=== PATIENT | female | born 1930 | race Caucasian/White ===

== ENCOUNTER 2017-12-15 18:55 | Inpatient (IN) ==
[2017-12-15] MEDS ORDERED: *HR* HYDROcodone/Acet 5/325 mg TABLET PO PRN (20:26)
[2017-12-15] MEDS ORDERED: NON-FORMULARY MEDICATION 1 EACH EACH (Alendronate Sodium [Fosamax] 70 MG) PO SCH (20:30)
[2017-12-15] MEDS: Latanoprost 2.5 ML BOTTLE BOTH EYES SCH (21:31)
[2017-12-15] MEDS ORDERED: Vancomycin 500 MG in 0.9 % Sodium Chloride Mini Bag 100 ML IVPB ONE (22:00)
[2017-12-16] MEDS: Ondansetron ODT 4 MG TAB.RAPDIS SL PRN ×2 (03:14→17:08)
[2017-12-16 05:52] LABS: Basophils % 0.1 %; Eosinophils % 0.6 %; Hematocrit 27.7 % (35.3-44.9); Hemoglobin 8.8 g/dL (11.5-15.4); Immature Granulocytes % 0.7 % (0-4); Lymphocytes # 0.4 K/mcL (0.6-4.6); Lymphocytes % 5.1 %; Mean Corpuscular HGB Conc 31.8 g/dL (31.6-35.5); Mean Corpuscular Volume 91.4 fL (83.0-100.0); Mean Platelet Volume 10.8 fL (9.4-12.4); Monocytes # 0.6 K/mcL (0.0-1.3); Monocytes % 8.8 %; Neutrophils # 5.9 K/mcL (1.6-8.9); Platelet Count 205 K/mcL (140-400); Red Blood Count 3.03 M/mcL (3.82-4.97); Red Cell Distribution Width 14.5 % (11.5-14.5); Segmented Neutrophils % 84.7 %
[2017-12-16 06:08] LABS: Calcium 8.6 mg/dL (8.6-10.3)
[2017-12-16] MEDS: Cholecalciferol (D-3) 1,000 UNIT TABLET PO SCH (08:20)
[2017-12-16] MEDS: Lactobacillus 1 EACH CAP.SPRINK PO SCH (08:20)
[2017-12-16] MEDS: amLODIPine 5 MG TABLET PO SCH (08:20)
[2017-12-16] MEDS: Anastrozole 1 MG TABLET PO SCH (08:21)
--- NOTE | 2017-12-16 09:34 | Internal Med History&Physical ---
Date of Encounter: 12/16/17 Time of Encounter: 09:32 Assessment and Plan (1) HTN (hypertension) Current visit: No Status: Chronic Blood pressure is stable continue present medications will follow Qualifiers: Hypertension type: essential hypertension Qualified Code(s): I10 - Essential (primary) hypertension (2) Abscess of right upper extremity Current visit: No Status: Acute s/p incision drainage , wound seems to be stable and healing limited drain noted ON VAN and Levaquin adjsut dose Van based on levels has increase creatinine (3) Acute kidney injury Current visit: No Status: Acute Baseline is not known at the present time Creatinine is 2.2 will follow labs adjust meds accordingly (4) Anemia Current visit: Yes Status: Chronic Iron levels ordered empirically start on Ferrous Sulphate Qualifiers: Anemia type: unspecified type Qualified Code(s): D64.9 - Anemia, unspecified Internal Medicine - H&P: HPI Admitted From: Hospital to Hospital Transfer History of present illness: Ms. Shah is a 87 year old female who had incision drainage of left wrist for septic arthritis and was sent for further care and rehab . She had hx of CRI , HTN some anxiety . Complains of some pain on surgical site and feels that oxycontin helps better and affects stays longer No other complains . No chest pain SOB , cough fever or chills No dizziness no weakness in arms or legs No nausea vomiting or diarrhea no ruinary complains Past Med Surg Social Fam HX - Past Medical History Medical history: arthritis, hyperlipidemia, hypertension Psychiatric history: no psych history - Past Surgical History Additional surgical history: Bilat knee replacement, appendectomy, R partial masectomy - Social History Smoking Status: Never smoker Smokeless Tobacco Status: No Alcohol use: none Drug use: none - Family History Mother Family Member Ethnicity: Non- Living Status: Still Living Hx Family Cardiac Disorders: Yes (angina) Hx Family Cancer: Yes (breast) Father Adopted: No Living Status: Hx Family Cardiac Disorders: Yes Hx Family Cancer: Yes Internal Medicine - H&P: Meds Anastrozole [Arimidex] 1 mg PO DAILY 07/02/15 [History] Sertraline [Zoloft] 150 mg PO DAILY 07/02/15 [History] Simvastatin [Zocor] 20 mg PO HS 07/02/15 [History] amLODIPine [Norvasc] 5 mg PO DAILY 07/02/15 [History] Buspirone HCl [Buspar] 7.5 mg PO BID 11/12/17 [History] Calcium Carbonate/Vitamin D3 [Calcium 600 + Vit D Tablet] 1 each PO BID 11/12/17 [History] Cholecalciferol (Vitamin D3) [Vitamin D3] 1,000 unit PO DAILY 11/12/17 [History] Donepezil HCl [Aricept] 5 mg PO HS 11/12/17 [History] Alendronate Sodium [Fosamax] 70 mg PO QWEEK 11/20/17 [History] Latanoprost [Xalatan] 1 drop BOTH EYES HS 11/20/17 [History] Docusate [Colace] 100 mg PO DAILY capsule 12/15/17 [Rx] HYDROcodone/Acet 5/325 mg [[place] 5-325 mg] 1 tab PO Q6H PRN 3 Days #12 tab 12/15/17 [Rx] Lactobacillus [Culturelle] 2 each PO DAILY cap.sprink 12/15/17 [Rx] Levofloxacin [Levaquin] 500 mg PO ONCE #1 tablet 12/15/17 [Rx] Ondansetron ODT [Zofran ODT] 4 mg SL Q6HR PRN #10 tab.rapdis 12/15/17 [Rx] Vancomycin [Vancocin] 500 each IV QAM 3 Days #3 vial 12/15/17 [Rx] Allergy/AdvReac Type Severity Reaction Status Date / Time No Known Allergies Allergy Verified 11/12/17 12:09 All Systems PM: A 10-system review of systems was performed and is negative for pertinent findings except as documented above in the HPI. - Constitutional Constitutional: lethargy, no anorexia, no chills, no excessive sweating, no fatigue, no falls, no weight gain, no weight loss - EENT Eyes: no blurry vision, no diplopia, no discharge, no loss of vision, no seeing flashes, no spots in vision - Cardiovascular Cardiovascular ROS IM: no chest pain, no claudication, no diaphoresis, no dyspnea, no dyspnea on exertion, no lightheadedness, no orthopnea, no palpitations, no paroxysmal nocturnal dyspnea, no syncope - Respiratory Respiratory: no cough, no dyspnea, no hemoptysis, no pain on inspiration, no chest congestion, no excessive phlegm production, no change in phlegm color, no pain with cough - Gastrointestinal Gastrointestinal: no as per HPI, no belching, no bloating, no change in bowel habits, no change in stool character, no heartburn, no hematemesis, no hematochezia - Genitourinary Genitourinary: urinary frequency, urinary hesitancy, no hematuria, no pelvic pain - Musculoskeletal Musculoskeletal ROS IM: arthralgias, muscle weakness, myalgias, neck pain, no back pain, no muscle cramps, no numbness - Neurological Neurological ROS: dizziness, weakness, no confusion, no convulsions - Constitutional Vitals: Temp Pulse Resp BP Pulse Ox 98.0 F 86 16 117/74 93 12/16/17 07:16 12/16/17 07:16 12/16/17 07:16 12/16/17 07:16 12/16/17 07:16 General appearance: Present: A&O X 3, pleasant. Absent: no acute distress - Head Head exam: Present: atraumatic - Eye Eye exam: Present: EOMI, PERRL. Absent: scleral icterus Pupils: Present: PERRL - Neck Neck exam general surgery: Absent: tenderness, nuchal rigidity - Respiratory Respiratory exam: Present: CTAB. Absent: decreased breath sounds, respiratory distress, rhonchi, stridor, wheezes, tachypnea - Cardiovascular Cardiovascular exam: Present: RRR, +S1, systolic murmur. Absent: irregular rhythm, JVD Additional comments: at [place] no Radiation - GI/Abdominal GI/Abdominal exam: Present: normal bowel sounds, pulsatile mass, soft. Absent: distended, guarding, rebound, rigid - Extremities Exam Extremities exam: Present: pedal edema Additional comments: ++ pitting both feet - Incison Incision: Present: clean and dry, open. Absent: inflamed, erythema, serous Comments: left wrist open wound with some stitches in place , no apprent discharge noted no surrounding erythema dressing seems clean. - Neurological Exam Neurological exam: Present: CN II-XII intact, oriented X3, no focal deficits, strengths equal and symetr throughout Additional comments: some weakness left wrist since its infected and Internal Med - H&P Results - Labs CBC & Chem 7: 12/16/17 05:00 12/16/17 05:00 Labs: Short CBC 12/16/17 Range/Units 05:00 WBC 7.0 (4.3-11.1) K/mcL Hgb 8.8 L (11.5-15.4) g/dL Hct 27.7 L (35.3-44.9) % Plt Count 205 (140-400) K/mcL Neutrophils # 5.9 (1.6-8.9) K/mcL BMP 12/16/17 05:00 Sodium 133 L Potassium 4.0 Chloride 99 Carbon Dioxide 28 BUN 19 Creatinine 2.29 H Glucose 109 H Calcium 8.6
[2017-12-16] MEDS: *HR* OxyCODONE/APAP 5/325 TABLET PO PRN (18:00)
[2017-12-16] MEDS: Latanoprost 2.5 ML BOTTLE BOTH EYES SCH (21:09)
[2017-12-16] MEDS ORDERED: Vancomycin 500 MG in 0.9 % Sodium Chloride Mini Bag 100 ML IVPB ONE (22:00)
[2017-12-17] MEDS: traMADol 50 MG TABLET PO PRN ×2 (00:30→20:30)
--- NOTE | 2017-12-17 08:22 | Internal Med Progress Note ---
Date of Encounter: 12/17/17 Time of Encounter: 08:20 - Assessment and plan (1) HTN (hypertension) Current Visit: No Status: Chronic Assessment and plan: stable on meds no new change will continue to follow Qualifiers: Hypertension type: essential hypertension Qualified Code(s): I10 - Essential (primary) hypertension (2) Abscess of right upper extremity Current Visit: No Status: Acute Assessment and plan: She has completed her levofloxacin and is on Vancomycin dose is being adjusted by Pharmacy Pt is afebrile All cultures have been negative so far Her antibiotics to finish 12/18/2017 (3) Acute kidney injury Current Visit: No Status: Acute Assessment and plan: Per records this seems to be an acute kidney injury will need to adjust disease and follow. If needed ultrasound og the kidneys if not already done (4) Anemia Current Visit: Yes Status: Chronic Assessment and plan: On iron will follow TSH is pending Qualifiers: Anemia type: unspecified type Qualified Code(s): D64.9 - Anemia, unspecified - Subjective Interval history: Doing very well with no acute issues today except that she couldn't sleep last night no apparent reason her pain is well controlled with change in her meds no fever or chills nausea or vomiting eating and drinking fluids making urine as well - Constitutional Vitals: Temp Pulse Resp BP Pulse Ox 97.8 F 70 16 110/67 95 12/17/17 00:19 12/17/17 00:19 12/17/17 00:19 12/17/17 00:19 12/17/17 00:19 General appearance: Present: A&O X 3, pleasant, answers questions appropriately. Absent: no acute distress - Head Head exam: Present: atraumatic - Eye Eye exam: Present: PERRL. Absent: scleral icterus Pupils: Present: PERRL - Neck Neck exam general surgery: Present: supple. Absent: tenderness, nuchal rigidity - Respiratory Respiratory exam: Present: CTAB. Absent: decreased breath sounds, prolonged expiratory phase, rales, respiratory distress, rhonchi, stridor, wheezes, tachypnea - Cardiovascular Cardiovascular exam: Present: RRR, +S1, +S2. Absent: irregular rhythm, JVD Additional comments: soft click and murmur at apex no radiation - GI/Abdominal GI/Abdominal exam: Present: normal bowel sounds, soft. Absent: distended, guarding, rigid - Extremities Exam Extremities exam: Present: pedal edema. Absent: tenderness, warm Additional comments: ++ pitting both sides - Incison Incision: Present: clean and dry, intact, open Comments: some sutures are open and clean with no or minimal drainage - Neurological Exam Neurological exam: Present: CN II-XII intact, oriented X3, no focal deficits, strengths equal and symetr throughout. Absent: facial droop, speech deficit Internal Medicine: Result - Labs CBC & Chem 7: 12/16/17 05:00 12/16/17 05:00 Consult Discharge Plan - Plan Referrals: Conchis Escobar, CLIENT ARCHITECT [Primary Care Provider] -
[2017-12-17] MEDS ORDERED: levoFLOXacin 500 MG TABLET PO ONE (09:00)
[2017-12-17] MEDS: *HR* OxyCODONE/APAP 5/325 TABLET PO PRN (09:05)
[2017-12-17] MEDS: amLODIPine 5 MG TABLET PO SCH (09:06)
[2017-12-17] MEDS: Anastrozole 1 MG TABLET PO SCH (09:06)
[2017-12-17] MEDS: Lactobacillus 1 EACH CAP.SPRINK PO SCH (09:06)
[2017-12-17] MEDS: Cholecalciferol (D-3) 1,000 UNIT TABLET PO SCH (09:07)
[2017-12-17] MEDS: Ondansetron ODT 4 MG TAB.RAPDIS SL PRN ×2 (12:19→17:37)
[2017-12-17 14:09] LABS: BUN/Creatinine Ratio 9 (6-26); Blood Urea Nitrogen 22 mg/dL (8-23); eGFR For Non-African Americans 18 (> 60)
[2017-12-17] MEDS: Latanoprost 2.5 ML BOTTLE BOTH EYES SCH (20:38)
[2017-12-18 05:53] LABS: Basophils % 0.2 %; Eosinophils # 0.1 K/mcL (0.0-0.6); Eosinophils % 0.8 %; Hematocrit 27.7 % (35.3-44.9); Hemoglobin 8.8 g/dL (11.5-15.4); Immature Granulocytes % 0.6 % (0-4); Lymphocytes # 0.5 K/mcL (0.6-4.6); Lymphocytes % 5.5 %; Mean Corpuscular HGB Conc 31.8 g/dL (31.6-35.5); Mean Corpuscular Hemoglobin 29.2 pg (28.0-33.3); Mean Platelet Volume 9.9 fL (9.4-12.4); Monocytes # 0.6 K/mcL (0.0-1.3); Monocytes % 7.6 %; Neutrophils # 7.2 K/mcL (1.6-8.9); Platelet Count 203 K/mcL (140-400); Red Blood Count 3.01 M/mcL (3.82-4.97); Red Cell Distribution Width 14.6 % (11.5-14.5); Segmented Neutrophils % 85.3 %
[2017-12-18 06:06] LABS: Calcium 8.8 mg/dL (8.6-10.3); Potassium 4.2 mEq/L (3.5-5.1)
[2017-12-18] MEDS: amLODIPine 5 MG TABLET PO SCH (08:11)
[2017-12-18] MEDS: Lactobacillus 1 EACH CAP.SPRINK PO SCH (08:12)
[2017-12-18] MEDS: Anastrozole 1 MG TABLET PO SCH (08:12)
[2017-12-18] MEDS: Cholecalciferol (D-3) 1,000 UNIT TABLET PO SCH (08:12)
[2017-12-18] MEDS ORDERED: Aminoglycoside Consult 1 EACH MC ONE (08:21)
[2017-12-18] MEDS: *HR* OxyCODONE/APAP 5/325 TABLET PO PRN ×2 (08:22→20:12)
--- NOTE | 2017-12-18 11:33 | Internal Med Progress Note ---
Addendum entered and electronically signed by Yaritza Dennis 12/19/17 16:35: I examined this patient and my medical decision-making was reviewed with the QUILL REAMER. I agree with the documented findings, disposition and treatment plan as described except to the extent set forth below. abscess LUE improving finishing vanco course continue dressing changes treat perineum irritation rajat yeast Acute stage 3 kidney injury Previous records indicate baseline cre = 0.5 will continue to follow labs will obtain renal and bladder ultrasound making urine nausea vomiting lack of eating nutritional risk meal supplements will change medications that could aggravate - reduce zoloft from 150 to 75 mg may need to reduce iron hold donezapil for now add pepcid anemia stable hx iron def no active bleeding oxygenation has 2 L oxygen nc and reduced excursion has hx copd was not on home oxygen prior but has had exacerbations in past and likely atac tasis will add IS and tonibs had Left lower lobe opacity prior to admit here will repeat cxr 2 view continues to be weak reduced mobility continue therapy she and care for her 105 yr old mother at home in past Original Note: Date of Encounter: 12/18/17 Time of Encounter: 11:31 - Assessment and plan (1) HTN (hypertension) Current Visit: No Status: Chronic Qualifiers: Hypertension type: essential hypertension Qualified Code(s): I10 - Essential (primary) hypertension (2) Abscess of left upper extremity Current Visit: Yes Status: Acute Assessment and plan: Improving. Follow up with infectious disease as scheduled. Last day vancomycin today. Levaquin completed. (3) Acute kidney injury Current Visit: Yes Status: Acute Assessment and plan: Creatinine stable at 2.52. Will continue to try and labs. Last dose of vancomycin today. Follow up with nephrology as scheduled. (4) Anemia Current Visit: Yes Status: Chronic Assessment and plan: Stable. Hemoglobin 8.8. Qualifiers: Anemia type: unspecified type Qualified Code(s): D64.9 - Anemia, unspecified - Time Spent With Patient less than 15 minutes - Subjective Interval history: Patient sitting in chair. Continues to wear oxygen per nasal cannula. Encouraged incentive spirometer. Discussed ordering nebulizer treatments. January oxygen at home. Denies shortness of breath, chest pain. Creatinine continues to be lightly elevated but stable. To follow up with nephrology. Last dose of vancomycin to be completed today. Patient complains of constipation. Will order laxatives. - Constitutional Vitals: Temp Pulse Resp BP Pulse Ox 98.5 F 85 17 107/64 96 12/18/17 07:23 12/18/17 07:23 12/18/17 07:23 12/18/17 07:23 12/18/17 07:23 General appearance: Present: A&O X 3, pleasant, answers questions appropriately. Absent: no acute distress - Head Head exam: Present: atraumatic, normocephalic - Eye Eye exam: Present: PERRL, conjuntiva pink, sclera anicteric Pupils: Present: PERRL - Neck Neck exam general surgery: Present: supple, trachea midline. Absent: lymphadenopathy - Respiratory Respiratory exam: Absent: accessory muscle use, rales, rhonchi, wheezes Additional comments: Expiratory crackles bilateral upper lobes. - Cardiovascular Cardiovascular exam: Present: RRR, +S1, +S2. Absent: diastolic murmur, gallop, rubs, systolic murmur - GI/Abdominal GI/Abdominal exam: Present: normal bowel sounds, soft, no peritoneal signs. Absent: distended, tenderness - Extremities Exam Extremities exam: Present: warm, radial pulses palpable and symmetrical. Absent: calf tenderness, cyanotic, pedal edema - Incison Comments: Left wrist wound. Dressing dry and intact. - Neurological Exam Neurological exam: Present: CN II-XII intact, oriented X3, no focal deficits. Absent: pronater drift, facial droop, speech deficit - Skin Skin exam: Present: dry, intact Internal Medicine: Result - Labs CBC & Chem 7: 12/18/17 05:45 12/18/17 05:45 Labs: Short CBC 12/18/17 Range/Units 05:45 WBC 8.5 (4.3-11.1) K/mcL Hgb 8.8 L (11.5-15.4) g/dL Hct 27.7 L (35.3-44.9) % Plt Count 203 (140-400) K/mcL Neutrophils # 7.2 (1.6-8.9) K/mcL BMP 12/17/17 12/18/17 13:50 05:45 Sodium 133 L Potassium 4.2 Chloride 98 Carbon Dioxide 30 H BUN 22 21 Creatinine 2.51 H 2.52 H Glucose 101 Calcium 8.8 Consult Discharge Plan - Plan Referrals: Escobar,Conchis J, JOHNNY [Primary Care Provider] -
[2017-12-18] MEDS: traMADol 50 MG TABLET PO PRN (13:23)
[2017-12-18 13:28] LABS: Iron < 10 mcg/dL (50-170); Transferrin 132 mg/dL (203-362)
[2017-12-18] MEDS: Ipratropium/Albuterol Neb 3 ML IH SCH ×2 (16:53→20:11)
[2017-12-18] MEDS: Famotidine 20 MG TABLET PO SCH (20:10)
[2017-12-18] MEDS: Latanoprost 2.5 ML BOTTLE BOTH EYES SCH (20:15)
[2017-12-19] MEDS: Ipratropium/Albuterol Neb 3 ML IH SCH ×4 (05:00→20:39)
[2017-12-19] MEDS: Lactobacillus 1 EACH CAP.SPRINK PO SCH (09:55)
[2017-12-19] MEDS: Cholecalciferol (D-3) 1,000 UNIT TABLET PO SCH (09:55)
[2017-12-19] MEDS: Anastrozole 1 MG TABLET PO SCH (09:56)
[2017-12-19] MEDS: amLODIPine 5 MG TABLET PO SCH (09:56)
[2017-12-19] MEDS: Famotidine 20 MG TABLET PO SCH ×2 (09:56→20:34)
[2017-12-19] MEDS: traMADol 50 MG TABLET PO PRN (09:57)
--- NOTE | 2017-12-19 11:14 | Internal Med Progress Note ---
Addendum entered and electronically signed by Yaritza Dennis 12/19/17 16:43: I have personally performed a face to face evaluation on this patient. I have reviewed and agree with the care plan. Her abscess LUE improving still discontinued vanco course completed levaquin continue dressing changes Acute stage 3 kidney injury Previous records indicate baseline cre = 0.5 not much change in last days has been over 2 will continue to follow labs will obtain renal and bladder ultrasound making urine nausea vomiting lack of eating nutritional risk meal supplements did change medications that could aggravate - reduce zoloft from 150 to 75 mg may need to reduce iron currently bid hold donezapil for now add pepcid anemia stable hx iron def no active bleeding oxygenation has 2 L oxygen nc and reduced excursion has hx copd was not on home oxygen prior but has had exacerbations in past added IS and duonebs had Left lower lobe opacity prior to admit here will repeat cxr 2 view continues to be weak reduced mobility continue therapy she and care for her 105 yr old mother at home in past Original Note: Date of Encounter: 12/19/17 Time of Encounter: 11:12 - Assessment and plan (1) Abscess of left upper extremity Current Visit: Yes Status: Acute Assessment and plan: No acute issues. He has dressing to left wrist which remains dry and intact with continued slight swelling of the left hand. CV checks remained within normal limits. Patient with complaints of slight pain during mobilization of left breast. Patient's vancomycin has finished due to her elevated creatinine. We will contact infectious disease physician to provide patient's status and further recommendations. Patient remains afebrile (2) HTN (hypertension) Current Visit: No Status: Chronic Assessment and plan: Vital signs remained stable. We will continue with current medications Qualifiers: Hypertension type: essential hypertension Qualified Code(s): I10 - Essential (primary) hypertension (3) Acute kidney injury Current Visit: Yes Status: Acute Assessment and plan: o acute issues at this time. Patient's creatinine elevated at 2.52. Per medical records patient's baseline creatinine has been 0.5. Vancomycin has been discontinued. We will continue to monitor patient's renal status with serial labs. We will discuss with Dr. Dennis with possible consideration of nephrology consult. - Time Spent With Patient less than 15 minutes - Subjective Interval history: Patient appears relaxed currently denies any discomforts or shortness of breath. Patient does state that when she moves her left wrist and she does have increased pain. Left wrist with dressing in place and noted slight swelling to the left hand. Patient has finished her IV antibiotics. - Constitutional Vitals: Temp Pulse Resp BP Pulse Ox 98.1 F 90 16 100/60 95 12/19/17 07:23 12/19/17 07:23 12/19/17 07:23 12/19/17 07:49 12/19/17 07:23 General appearance: Present: A&O X 3, pleasant, answers questions appropriately. Absent: no acute distress - Head Head exam: Present: atraumatic, normocephalic - Eye Eye exam: Present: PERRL, conjuntiva pink, sclera anicteric Pupils: Present: PERRL - Neck Neck exam general surgery: Present: supple, trachea midline. Absent: lymphadenopathy - Respiratory Respiratory exam: Present: CTAB. Absent: accessory muscle use, rales, rhonchi, wheezes - Cardiovascular Cardiovascular exam: Present: RRR, +S1, +S2. Absent: diastolic murmur, gallop, rubs, systolic murmur - GI/Abdominal GI/Abdominal exam: Present: normal bowel sounds, soft, no peritoneal signs. Absent: distended, tenderness Additional comments: Midline abdominal incision appears to be healing well. Abdomen remains soft and nontender, flat with bowel sounds heard all quadrants. - Extremities Exam Extremities exam: Present: warm, radial pulses palpable and symmetrical. Absent: calf tenderness, cyanotic, pedal edema Additional comments: Left wrist Kerlix dressing appears dry and intact with left hand was showing slight swelling. Capillary refill remains less than 3 seconds. - Neurological Exam Neurological exam: Present: CN II-XII intact, oriented X3, no focal deficits. Absent: pronater drift, facial droop, speech deficit - Skin Skin exam: Present: dry, intact Internal Medicine: Result - Labs CBC & Chem 7: 12/18/17 05:45 12/18/17 05:45 Consult Discharge Plan - Plan Referrals: Conchis Escobar CNP [Primary Care Provider] -
[2017-12-19] MEDS: Nystatin Cream 15 GM TUBE TP SCH ×2 (15:31→20:33)
[2017-12-19] MEDS: Ondansetron ODT 4 MG TAB.RAPDIS SL PRN (15:32)
[2017-12-19] MEDS: Latanoprost 2.5 ML BOTTLE BOTH EYES SCH (20:37)
[2017-12-19] MEDS: *HR* OxyCODONE/APAP 5/325 TABLET PO PRN (20:44)
[2017-12-20] MEDS: Ipratropium/Albuterol Neb 3 ML IH SCH ×4 (04:11→21:17)
[2017-12-20 05:04] LABS: Basophils % 0.3 %; Eosinophils # 0.1 K/mcL (0.0-0.6); Eosinophils % 0.7 %; Hematocrit 25.8 % (35.3-44.9); Hemoglobin 8.1 g/dL (11.5-15.4); Immature Granulocytes % 0.8 % (0-4); Lymphocytes # 0.6 K/mcL (0.6-4.6); Lymphocytes % 6.5 %; Mean Corpuscular HGB Conc 31.4 g/dL (31.6-35.5); Mean Corpuscular Hemoglobin 28.5 pg (28.0-33.3); Mean Corpuscular Volume 90.8 fL (83.0-100.0); Mean Platelet Volume 10.4 fL (9.4-12.4); Monocytes # 0.7 K/mcL (0.0-1.3); Monocytes % 7.4 %; Neutrophils # 7.4 K/mcL (1.6-8.9); Platelet Count 233 K/mcL (140-400); Red Blood Count 2.84 M/mcL (3.82-4.97); Red Cell Distribution Width 14.6 % (11.5-14.5); Segmented Neutrophils % 84.3 %
[2017-12-20 05:21] LABS: Albumin 2.2 g/dL (3.5-5.7); Albumin/Globulin Ratio 0.8 (1.1-2.2); Bilirubin,Total 0.3 mg/dL (0.3-1.0); Calcium 8.8 mg/dL (8.6-10.3); Globulin 2.9 g/dL (2.4-3.5); Magnesium 1.6 mg/dL (1.6-2.6); Potassium 4.3 mEq/L (3.5-5.1); Total Protein 5.1 g/dL (6.4-8.9)
[2017-12-20] MEDS: amLODIPine 5 MG TABLET PO SCH (08:13)
[2017-12-20] MEDS: traMADol 50 MG TABLET PO PRN ×2 (08:13→21:14)
[2017-12-20] MEDS: Anastrozole 1 MG TABLET PO SCH (08:13)
[2017-12-20] MEDS: Lactobacillus 1 EACH CAP.SPRINK PO SCH (08:14)
[2017-12-20] MEDS: Famotidine 20 MG TABLET PO SCH ×2 (08:14→21:10)
[2017-12-20] MEDS: Nystatin Cream 15 GM TUBE TP SCH ×2 (08:14→21:17)
[2017-12-20] MEDS: Ondansetron ODT 4 MG TAB.RAPDIS SL PRN (08:14)
[2017-12-20] MEDS: Cholecalciferol (D-3) 1,000 UNIT TABLET PO SCH (08:14)
--- NOTE | 2017-12-20 10:27 | Internal Med Progress Note ---
Date of Encounter: 12/20/17 Time of Encounter: 10:25 - Assessment and plan (1) Abscess of left upper extremity Current Visit: Yes Status: Acute Assessment and plan: No acute issues. He has dressing to left wrist which remains dry and intact with continued slight swelling of the left hand. CV checks remained within normal limits. Patient with complaints of slight pain during mobilization of left wrist. Patient's vancomycin has finished due to her elevated creatinine. Infectious disease has been contacted which shows to defer any further use of antibiotics until she has seen in the office during her upcoming follow-up appointment on December 21. Afebrile. (2) HTN (hypertension) Current Visit: No Status: Chronic Assessment and plan: Vital signs remained stable. We will continue with current medications Qualifiers: Hypertension type: essential hypertension Qualified Code(s): I10 - Essential (primary) hypertension (3) Acute kidney injury Current Visit: Yes Status: Acute Assessment and plan: o acute issues at this time. Patient's creatinine remains elevated at 2.54. Per medical records patient's baseline creatinine has been 0.5. Vancomycin has been discontinued and current medications have been reviewed to remove any patient's that could potentiate her acute renal status. Patient had a renal ultrasound and a abdominal ultrasound performed yesterday with both showing no acute process. We will continue to monitor patient's renal status with serial labs. Patient currently has a upcoming appointment with nephrology. We will discuss further with Dr. Dennis further recommendations. (4) Acute respiratory failure with hypoxia Current Visit: Yes Status: Acute Assessment and plan: No acute issues at this time. Patient was recently treated at [facility] for respiratory failure and had a chest x-ray that showed a left lower left basilar opacity. Two-view chest x-ray was performed yesterday which shows no change. Patient currently denies any dyspnea. Continues on oxygen when necessary. (5) Nausea & vomiting Current Visit: Yes Status: Acute Assessment and plan: Patient with nausea and vomiting this morning which she states has been a reoccurring issue over the past year. Patient states she feels that her frequency has increased over the past several weeks. Patient states several triggers to include eating and at times position changing. We will review patient's current medications and we will discuss with Dr. Dennis. Recent abdominal ultrasound showed no acute issues. Qualifiers: Vomiting type: unspecified Vomiting Intractability: unspecified Qualified Code(s): R11.2 - Nausea with vomiting, unspecified - Time Spent With Patient less than 15 minutes - Subjective Interval history: Patient appears relaxed currently denies any discomforts or shortness of breath. Patient does state that when she moves her left wrist and she does have increased pain. Left wrist with dressing in place and noted slight swelling to the left hand. Patient has finished her IV antibiotics. Contact has been made with infectious disease which currently has chosen to hold off on any further antibiotics due to patient's renal status. Patient has upcoming follow-up appointment on December 21. Patient's current renal status remained stable with creatinine of 2.54. Patient had a renal ultrasound performed which showed no acute issues. Patient also had a 2 view x-ray of the chest performed which shows a stable left basilar opacity. Patient has had complaints of nausea with vomiting this morning after eating breakfast. Patient states that this is been a chronic issue that has been going on for the past year but feels that his has been increasing in frequency. Patient states that she has experienced several triggers for her nausea to include eating or changes of position. Denies any blood in her emesis. Denies any reflux. Denies any diarrhea or constipation. Nursing describes emesis as being bile-like in appearance. - Constitutional Vitals: Temp Pulse Resp BP Pulse Ox 98.0 F 85 17 106/65 81 12/20/17 07:17 12/20/17 07:17 12/20/17 07:17 12/20/17 07:17 12/20/17 07:17 General appearance: Present: A&O X 3, pleasant, answers questions appropriately. Absent: no acute distress - Head Head exam: Present: atraumatic, normocephalic - Eye Eye exam: Present: PERRL, conjuntiva pink, sclera anicteric Pupils: Present: PERRL - Neck Neck exam general surgery: Present: supple, trachea midline. Absent: lymphadenopathy - Respiratory Respiratory exam: Present: CTAB. Absent: accessory muscle use, rales, rhonchi, wheezes Additional comments: Lungs are clear throughout upper vitals noted diminished sepulveda. No productive cough noted. Respiratory effort appears relaxed. - Cardiovascular Cardiovascular exam: Present: RRR, +S1, +S2. Absent: diastolic murmur, gallop, rubs, systolic murmur - GI/Abdominal GI/Abdominal exam: Present: normal bowel sounds, soft, no peritoneal signs. Absent: distended, tenderness - Extremities Exam Extremities exam: Present: warm, radial pulses palpable and symmetrical. Absent: calf tenderness, cyanotic, pedal edema Additional comments: Left wrist with Kerlix dressing that is dry and intact. Left hand remains slightly swollen with CV checks normal - Neurological Exam Neurological exam: Present: CN II-XII intact, oriented X3, no focal deficits. Absent: pronater drift, facial droop, speech deficit - Skin Skin exam: Present: dry, intact Internal Medicine: Result - Labs CBC & Chem 7: 12/20/17 04:20 12/20/17 04:20 Labs: Short CBC 12/20/17 Range/Units 04:20 WBC 8.8 (4.3-11.1) K/mcL Hgb 8.1 L (11.5-15.4) g/dL Hct 25.8 L (35.3-44.9) % Plt Count 233 (140-400) K/mcL Neutrophils # 7.4 (1.6-8.9) K/mcL BMP 12/20/17 04:20 Sodium 132 L Potassium 4.3 Chloride 98 Carbon Dioxide 28 BUN 25 H Creatinine 2.54 H Glucose 103 Calcium 8.8 Liver Function 12/20/17 Range/Units 04:20 Total Bilirubin 0.3 (0.3-1.0) mg/dL AST 35 (13-39) Units/L ALT 27 (7-52) Units/L Alkaline Phosphatase 71 (34-104) Units/L Albumin 2.2 L (3.5-5.7) g/dL - Impressions Impressions Abdomen Ultrasound 12/19/17 14:31 IMPRESSION: Right upper quadrant ultrasound: No acute abnormality. D/ / Charlie Lu MD / Charlie Lu MD Interpreting Provider: Charlie Lu MD Chest X-Ray 12/19/17 14:41 IMPRESSION: Increased opacification at the left lung base most likely representing a combination of volume loss and pleural fluid D/ / Kenneth Casas MD / Kenneth Casas MD Interpreting Provider: Kenneth Casas MD Retroperitoneum Ultrasound 12/19/17 15:09 IMPRESSION: Unremarkable ultrasound of the kidneys. No hydronephrosis. D/ / Gigi Reina MD / Gigi Reina MD Interpreting Provider: Gigi Reina MD Consult Discharge Plan - Plan Referrals: Conchis Escobar CNP [Primary Care Provider] -
--- NOTE | 2017-12-20 11:15 | Psychological Evaluation ---
Date of Encounter: 12/20/17 Time of Encounter: 10:30 History of Present Illness History of present illness: Ms. Shah is a 87 year old female ho had incision drainage of left wrist for septic arthritis and was sent for further care and rehab . She had hx of CRI , HTN some anxiety . Complains of some pain on surgical site and feels that oxycontin helps better and affects stays longer No other complains . Past Medical History - Psychiatric History Additional Psychiatric History: She had 2-3 sessions of counseling in 2011 when she was having marital issues. Denies any IP. She has been on Zolift for approximately 25 years and Buspar for 10 years. Home Medications and Allergies Anastrozole [Arimidex] 1 mg PO DAILY 07/02/15 [History] Sertraline [Zoloft] 150 mg PO DAILY 07/02/15 [History] Simvastatin [Zocor] 20 mg PO HS 07/02/15 [History] amLODIPine [Norvasc] 5 mg PO DAILY 07/02/15 [History] Buspirone HCl [Buspar] 7.5 mg PO BID 11/12/17 [History] Calcium Carbonate/Vitamin D3 [Calcium 600 + Vit D Tablet] 1 each PO BID 11/12/17 [History] Cholecalciferol (Vitamin D3) [Vitamin D3] 1,000 unit PO DAILY 11/12/17 [History] Donepezil HCl [Aricept] 5 mg PO HS 11/12/17 [History] Alendronate Sodium [Fosamax] 70 mg PO QWEEK 11/20/17 [History] Latanoprost [Xalatan] 1 drop BOTH EYES HS 11/20/17 [History] Docusate [Colace] 100 mg PO DAILY capsule 12/15/17 [Rx] Lactobacillus [Culturelle] 2 each PO DAILY cap.sprink 12/15/17 [Rx] Levofloxacin [Levaquin] 500 mg PO ONCE #1 tablet 12/15/17 [Rx] Ondansetron ODT [Zofran ODT] 4 mg SL Q6HR PRN #10 tab.rapdis 12/15/17 [Rx] Allergy/AdvReac Type Severity Reaction Status Date / Time No Known Allergies Allergy Verified 11/12/17 12:09 Social History - Social History Social History: twice. after 5 years of first marriage and single many years until 18 years ago. Marriage is stressful due to 's controlling/"hot head" nature. She has daughter from first marriage and 5 grandchildren. She lives with her and 105 year old mother ( dementia and on Hospice). She retired from [employer] work 38 years ago. She manages finances. She stated she does drive. - Alcohol Use Alcohol Use: none - Drug Use Drug Use: none Cognitive/Emotional Assessment - Cognitive Ability Language Function Ability: No Deficits Noted Verbal Communication Ability: Conversational Style Problem Solving Ability: Able To Solve Simple Problems Level of Alertness: Alert Orientation: Person, Place Ability to Follow Directions: Good Speech Pattern: Normal rate Thought Process: Intact Additional Findings: Difficulty with divided attention and sustained attention. Not able to do serial 3's /7's or spell WORLD backwards. Unable to perform math in her head. Recall 3/3 immediately and 0/3 after 5 mins. Stated noted difficulty with memory over Summer and family doctor inititiated Aricept. She feels the medication is helpful. She did know pres,. previous pres, and governor.Some difficulty noted with visual spatial skills - slowed and a little skewed. - Emotional Status Affect Description: Full range Coping Ability: Verbalizes positive coping skills Additional Findings: Stated her mood is anxious.She states her personality is quiet and low rapp. She is concerned with managing at home. Assessment & Plan - Diagnosis (1) Mood disorder - Prognosis Prognosis: Good - Treatment Plan Treatment Plan/Recommendations: Plan to see patient if here next week. Discussed stress management strategies upon return to home. Treatment Frequency: weekly while in rehab Procedures - Intervention Interventions: Cognitive/Behavioral Therapy - Participants Therapy Participant: Patient - Session Time Session Start Time: 09:35 Session Stop Time: 10:10
[2017-12-20] MEDS: Scopolamine Patch 1.5 MG PATCH.TD72 TD SCH (17:44)
[2017-12-20] MEDS: Nystatin SUSP 5 ML UD.LIQ PO SCH ×2 (17:53→21:16)
[2017-12-20] MEDS: Latanoprost 2.5 ML BOTTLE BOTH EYES SCH (21:15)
[2017-12-21] MEDS: Ipratropium/Albuterol Neb 3 ML IH SCH ×4 (04:48→21:01)
[2017-12-21 06:00] LABS: Basophils % 0.3 %; Eosinophils # 0.1 K/mcL (0.0-0.6); Eosinophils % 1.1 %; Hematocrit 24.6 % (35.3-44.9); Hemoglobin 7.9 g/dL (11.5-15.4); Immature Granulocytes % 0.5 % (0-4); Lymphocytes # 0.5 K/mcL (0.6-4.6); Mean Corpuscular HGB Conc 32.1 g/dL (31.6-35.5); Mean Corpuscular Volume 90.4 fL (83.0-100.0); Mean Platelet Volume 9.8 fL (9.4-12.4); Monocytes # 0.5 K/mcL (0.0-1.3); Monocytes % 7.2 %; Neutrophils # 6.4 K/mcL (1.6-8.9); Platelet Count 227 K/mcL (140-400); Red Blood Count 2.72 M/mcL (3.82-4.97); Red Cell Distribution Width 14.8 % (11.5-14.5); Segmented Neutrophils % 84.9 %
[2017-12-21 06:17] LABS: Calcium 8.5 mg/dL (8.6-10.3); Potassium 4.4 mEq/L (3.5-5.1)
[2017-12-21] MEDS: Famotidine 20 MG TABLET PO SCH ×2 (07:58→20:59)
[2017-12-21] MEDS: Anastrozole 1 MG TABLET PO SCH (07:58)
[2017-12-21] MEDS: Lactobacillus 1 EACH CAP.SPRINK PO SCH (07:58)
[2017-12-21] MEDS: Cholecalciferol (D-3) 1,000 UNIT TABLET PO SCH (07:58)
[2017-12-21] MEDS: amLODIPine 5 MG TABLET PO SCH (07:59)
[2017-12-21] MEDS: Nystatin SUSP 5 ML UD.LIQ PO SCH ×4 (07:59→20:56)
[2017-12-21] MEDS: Nystatin Cream 15 GM TUBE TP SCH ×2 (07:59→20:56)
[2017-12-21] MEDS: Doxycycline 100 MG CAPSULE PO SCH (20:55)
[2017-12-21] MEDS: *HR* OxyCODONE/APAP 5/325 TABLET PO PRN (20:57)
[2017-12-21] MEDS: Latanoprost 2.5 ML BOTTLE BOTH EYES SCH (20:59)
--- NOTE | 2017-12-21 21:18 | Electrocardiograph Report ---
[place] [id number] Test Date: 2017-12-20 Pat Name: Emi Shah Department: 2001 Room: 114 Gender: F Master Dyer: : 1930 Requested By: Richard Alex Order Number: [id number] Reading MD: Rachel Martinez Measurements Intervals [place] Rate: 85 P: -35 [place]: 160 QRS: 20 QRSD: 104 T: 6 QT: 367 QTc: 409 Interpretive Statements SINUS RHYTHM WITH OCCASIONAL ECTOPIC PREMATURE COMPLEXES ST DEVIATION AND MODERATE T-WAVE ABNORMALITY, CONSIDER ANTERIOR ISCHEMIA [-0.1+ mV T WAVE IN V3/V4] Electronically Signed On 12-21-2017 21:16:49 EDT by Rachel Martinez
[2017-12-22] MEDS: *HR* OxyCODONE/APAP 5/325 TABLET PO PRN ×2 (03:23→16:58)
[2017-12-22] MEDS: Ipratropium/Albuterol Neb 3 ML IH SCH ×4 (03:27→21:54)
[2017-12-22] MEDS: amLODIPine 5 MG TABLET PO SCH (09:23)
[2017-12-22] MEDS: Anastrozole 1 MG TABLET PO SCH (09:23)
[2017-12-22] MEDS: Doxycycline 100 MG CAPSULE PO SCH ×2 (09:23→20:47)
[2017-12-22] MEDS: Famotidine 20 MG TABLET PO SCH ×2 (09:23→20:48)
[2017-12-22] MEDS: Cholecalciferol (D-3) 1,000 UNIT TABLET PO SCH (09:23)
[2017-12-22] MEDS: Lactobacillus 1 EACH CAP.SPRINK PO SCH (09:23)
[2017-12-22] MEDS: Nystatin Cream 15 GM TUBE TP SCH ×2 (09:24→20:47)
[2017-12-22] MEDS: Nystatin SUSP 5 ML UD.LIQ PO SCH ×4 (09:24→20:47)
--- NOTE | 2017-12-22 10:08 | Internal Med Progress Note ---
Addendum entered and electronically signed by Yaritza Dennis 12/23/17 18:41: For this encounter, I have reviewed the KITCHEN MECHANIC or PA documentation, treatment plan, and medical decision making; and I have had face to face time with this patient. Original Note: Date of Encounter: 12/22/17 Time of Encounter: 09:59 - Assessment and plan (1) Abscess of left upper extremity Current Visit: Yes Status: Acute Assessment and plan: No acute issues. He has dressing to left wrist which remains dry and intact with continued slight swelling of the left hand. CV checks remained within normal limits. Patient with complaints of slight pain during mobilization of left wrist. Patient has finished IV antibiotics and now has recommendations from infectious disease continue with oral doxycycline. Patient remains afebrile. We will continue with current plan of care (2) HTN (hypertension) Current Visit: No Status: Chronic Assessment and plan: Vital signs remained stable. We will continue with current medications Qualifiers: Hypertension type: essential hypertension Qualified Code(s): I10 - Essential (primary) hypertension (3) Acute kidney injury Current Visit: Yes Status: Acute Assessment and plan: Patient's last set labs show creatinine of 2.51. Patient's creatinine has remained stable over the past several days, but remains elevated from her baseline. Patient was upcoming nephrology appointment. We will continue with current plan of care and with serial labs. Today's labs are pending. (4) Nausea & vomiting Current Visit: Yes Status: Acute Assessment and plan: Patient has not had any complaints of nausea noted over the past 24 hours. We will continue to monitor closely. Patient continues to take by mouth Qualifiers: Vomiting type: unspecified Vomiting Intractability: unspecified Qualified Code(s): R11.2 - Nausea with vomiting, unspecified - Time Spent With Patient less than 15 minutes - Subjective Interval history: Patient appears relaxed currently denies any discomforts or shortness of breath. Patient does state that when she moves her left wrist and she does have increased pain. Left wrist with dressing in place and noted slight swelling to the left hand. Patient had follow-up with surgery yesterday with no new orders received. Infectious disease requesting patient to be continued on doxycycline. Patient denies any further issues with nausea today. - Constitutional Vitals: Temp Pulse Resp BP Pulse Ox 98.1 F 80 18 105/66 94 12/22/17 07:53 12/22/17 07:53 12/22/17 07:53 12/22/17 07:53 12/22/17 07:53 General appearance: Present: A&O X 3, pleasant, answers questions appropriately. Absent: no acute distress - Head Head exam: Present: atraumatic, normocephalic - Eye Eye exam: Present: PERRL, conjuntiva pink, sclera anicteric Pupils: Present: PERRL - Neck Neck exam general surgery: Present: supple, trachea midline. Absent: lymphadenopathy - Respiratory Respiratory exam: Present: CTAB. Absent: accessory muscle use, rales, rhonchi, wheezes - Cardiovascular Cardiovascular exam: Present: RRR, +S1, +S2. Absent: diastolic murmur, gallop, rubs, systolic murmur - GI/Abdominal GI/Abdominal exam: Present: normal bowel sounds, soft, no peritoneal signs. Absent: distended, tenderness - Extremities Exam Extremities exam: Present: normal capillary refill, warm, radial pulses palpable and symmetrical. Absent: calf tenderness, cyanotic, pedal edema Additional comments: Left forearm and wrist with a Kerlix dressing that is dry and intact. Slight swelling noted to left hand. Distal CV checks normal - Neurological Exam Neurological exam: Present: CN II-XII intact, oriented X3, no focal deficits. Absent: pronater drift, facial droop, speech deficit - Skin Skin exam: Present: dry, intact Internal Medicine: Result - Labs CBC & Chem 7: 12/21/17 05:45 12/21/17 05:45 Consult Discharge Plan - Plan Referrals: Conchis Escobar CNP [Primary Care Provider] -
[2017-12-22] MEDS: Latanoprost 2.5 ML BOTTLE BOTH EYES SCH (20:49)
[2017-12-23] MEDS: Ipratropium/Albuterol Neb 3 ML IH SCH ×4 (05:04→20:46)
[2017-12-23] MEDS: Ondansetron ODT 4 MG TAB.RAPDIS SL PRN ×2 (05:06→08:14)
[2017-12-23 05:31] LABS: Hematocrit 27.3 % (35.3-44.9); Hemoglobin 8.7 g/dL (11.5-15.4); Mean Corpuscular HGB Conc 31.9 g/dL (31.6-35.5); Mean Corpuscular Hemoglobin 28.8 pg (28.0-33.3); Mean Corpuscular Volume 90.4 fL (83.0-100.0); Mean Platelet Volume 9.9 fL (9.4-12.4); Platelet Count 279 K/mcL (140-400); Red Blood Count 3.02 M/mcL (3.82-4.97); Red Cell Distribution Width 14.7 % (11.5-14.5)
[2017-12-23 05:49] LABS: Calcium 9.1 mg/dL (8.6-10.3); Magnesium 1.7 mg/dL (1.6-2.6); Potassium 3.9 mEq/L (3.5-5.1)
[2017-12-23] MEDS: Anastrozole 1 MG TABLET PO SCH (08:08)
[2017-12-23] MEDS: Cholecalciferol (D-3) 1,000 UNIT TABLET PO SCH (08:08)
[2017-12-23] MEDS: Famotidine 20 MG TABLET PO SCH (08:08)
[2017-12-23] MEDS: Doxycycline 100 MG CAPSULE PO SCH ×2 (08:08→20:45)
[2017-12-23] MEDS: Lactobacillus 1 EACH CAP.SPRINK PO SCH (08:09)
[2017-12-23] MEDS: Nystatin SUSP 5 ML UD.LIQ PO SCH ×4 (08:09→20:46)
[2017-12-23] MEDS: amLODIPine 5 MG TABLET PO SCH (08:09)
[2017-12-23] MEDS: Nystatin Cream 15 GM TUBE TP SCH ×2 (08:10→20:46)
[2017-12-23] MEDS: *HR* OxyCODONE/APAP 5/325 TABLET PO PRN (08:14)
[2017-12-23] MEDS: Scopolamine Patch 1.5 MG PATCH.TD72 TD SCH (12:56)
[2017-12-23] MEDS ORDERED: *HR* Promethazine 25 MG/ML VIAL IM PRN (16:25)
[2017-12-23] MEDS ORDERED: Acetaminophen 325 MG TABLET PO PRN (16:33)
--- NOTE | 2017-12-23 16:38 | Internal Med Progress Note ---
Date of Encounter: 12/21/17 Time of Encounter: 14:00 - Constitutional Vitals: Temp Pulse Resp BP Pulse Ox 97.9 F 83 16 148/83 95 12/23/17 07:14 12/23/17 07:14 12/23/17 07:14 12/23/17 07:14 12/23/17 07:14 General appearance: Present: A&O X 3, pleasant, answers questions appropriately. Absent: no acute distress Internal Medicine: Result - Labs CBC & Chem 7: 12/23/17 05:20 12/23/17 05:20 Labs: Short CBC 12/23/17 Range/Units 05:20 WBC 7.0 (4.3-11.1) K/mcL Hgb 8.7 L (11.5-15.4) g/dL Hct 27.3 L (35.3-44.9) % Plt Count 279 (140-400) K/mcL BMP 12/23/17 05:20 Sodium 137 Potassium 3.9 Chloride 97 L Carbon Dioxide 31 H BUN 22 Creatinine 2.07 H Glucose 106 H Calcium 9.1 Consult Discharge Plan - Plan Referrals: Conchis Escobar CANDY ATTENDANT [Primary Care Provider] -
--- NOTE | 2017-12-23 16:47 | Internal Med Progress Note ---
Date of Encounter: 12/21/17 Time of Encounter: 14:00 - Subjective Interval history: Pt continues to be nauseated may be slightly better not eating well discussed medications that may be aggravating her nausea discussed adjusting these p denies pain denies fever or chills denies abd pains did have small bm still feels constipated - Constitutional Vitals: Temp Pulse Resp BP Pulse Ox 97.9 F 83 16 148/83 95 12/21/17 07:14 12/21/17 07:14 12/21/17 07:14 12/21/17 07:14 12/21/17 07:14 General appearance: Present: cooperative, A&O X 3, pleasant, answers questions appropriately. Absent: no acute distress Internal Medicine: Result - Labs CBC & Chem 7: 12/23/17 05:20 12/23/17 05:20 Labs: Short CBC Consult Discharge Plan - Plan Referrals: Conchis Escobar ACCOUNT FINANCIAL MANAGER [Primary Care Provider] -
--- NOTE | 2017-12-23 17:00 | Internal Med Progress Note ---
Date of Encounter: 12/23/17 Time of Encounter: 13:00 - Subjective Interval history: [facility] Internal Med: Progress Note Patient Name: Emi Shah Date of : 1930 Patient Status: Inpatient Attending Provider: Brooks Valencia Date: 12/22/17 09:59 Initialization Date: 12/22/17 09:59 Date of Encounter: 12/22/17 Time of Encounter: 09:59 - Assessment and plan (1) Abscess of left upper extremity Current Visit: Yes Status: Acute Assessment and plan: No acute issues. Clinically mainly resolved, Finished courses of IV vanco and levaquin given per ID. she has dressing to left wrist which remains dry and intact . No pain. CV checks remained within normal limits. Patient has finished IV antibiotics and now has recommendations from infectious disease continue with oral doxycycline. This has been started. Patient remains afebrile. We will continue with current plan of care (2) HTN (hypertension) Current Visit: No Status: Chronic Assessment and plan: Vital signs remained stable. We will continue with current medications Qualifiers: Hypertension type: essential hypertension Qualified Code(s): I10 - Essential (primary) hypertension (3) Acute kidney injury Current Visit: Yes Status: Acute Assessment and plan: Patient's last set labs show creatinine remains elevated. It has been elevated since before she was transfer here. She has stage 3 renal disease. Patient's creatinine has remained stable over the past several days, but osman ins elevated from her baseline. Patient had recent nephrology appointment. We will continue with current plan of care. (4) Nausea & vomiting Current Visit: Yes Status: Acute Assessment and plan: Did hold her medications that could have interferred with her dietary intake. Pt was not eating at all due to nausea. She did vomit. Her ultrasounds looked ok. She continues to deny abd pain. She does have thrush. We have started treatment for this. Patient has some improvement in her nausea noted over the past 24 hours. We will continue to monitor closely. She did eat some yesterday and today so this is good. We will restart her low dose zoloft and low dose donezapil. Her scopolomine patch was helpful but seemed to make her drowsy. Will stop that and use prn phenergan for nausea. She is having BMs will dc iron supplement in case causing nausea Qualifiers: Vomiting type: unspecified Vomiting Intractability: unspecified Qualified Code(s): R11.2 - Nausea with vomiting, unspecified - Time Spent With Patient less than 15 minutes - Subjective Interval history: Pt continues to be nauseated may be slightly better eating a little better today discussed medications that may be aggravating her nausea discussed adjusting these p denies pain denies fever or chills denies abd pains did have small bm still feels constipated - Constitutional Vitals: Temp Pulse Resp BP Pulse Ox 98.1 F 80 18 105/66 94 12/22/17 07:53 12/22/17 07:53 12/22/17 07:53 12/22/17 07:53 12/22/17 07:53 General appearance: Present: A&O X 3, pleasant, answers questions appropriately. Absent: no acute distress - Head Head exam: Present: atraumatic, normocephalic - Eye Eye exam: Present: PERRL, conjuntiva pink, sclera anicteric Pupils: Present: PERRL - Neck Neck exam general surgery: Present: supple, trachea midline. Absent: lymphadenopathy - Respiratory Respiratory exam: Present: CTAB. Absent: accessory muscle use, rales, rhonchi, wheezes - Cardiovascular Cardiovascular exam: Present: RRR, +S1, +S2. Absent: diastolic murmur, gallop, rubs, systolic murmur - GI/Abdominal GI/Abdominal exam: Present: normal bowel sounds, soft, no peritoneal signs. Absent: distended, tenderness - Extremities Exam Extremities exam: Present: normal capillary refill, warm, radial pulses palpable and symmetrical. Absent: calf tenderness, cyanotic, pedal edema Additional comments: Left forearm and wrist with a Kerlix dressing that is dry and intact. Slight swelling noted to left hand. Distal CV checks normal - Neurological Exam Neurological exam: Present: CN II-XII intact, oriented X3, no focal deficits. Absent: pronater drift, facial droop, speech deficit - Skin Skin exam: Present: dry, intact - Constitutional Vitals: Temp Pulse Resp BP Pulse Ox 97.9 F 83 16 148/83 95 12/23/17 07:14 12/23/17 07:14 12/23/17 07:14 12/23/17 07:14 12/23/17 07:14 General appearance: Present: cooperative, A&O X 3, pleasant, answers questions appropriately. Absent: no acute distress Internal Medicine: Result - Labs CBC & Chem 7: 12/23/17 05:20 12/23/17 05:20 Labs: Short CBC 12/23/17 Range/Units 05:20 WBC 7.0 (4.3-11.1) K/mcL Hgb 8.7 L (11.5-15.4) g/dL Hct 27.3 L (35.3-44.9) % Plt Count 279 (140-400) K/mcL BMP 12/23/17 05:20 Sodium 137 Potassium 3.9 Chloride 97 L Carbon Dioxide 31 H BUN 22 Creatinine 2.07 H Glucose 106 H Calcium 9.1 Consult Discharge Plan - Plan Referrals: Conchis Escobar, WATER/WASTEWATER ENGINEER [Primary Care Provider] -
[2017-12-23] MEDS: Sucralfate 1 GM TABLET PO SCH (18:03)
[2017-12-23] MEDS: Latanoprost 2.5 ML BOTTLE BOTH EYES SCH (20:46)
[2017-12-24] MEDS: Ipratropium/Albuterol Neb 3 ML IH SCH ×4 (05:15→20:10)
[2017-12-24 05:31] LABS: Hematocrit 24.5 % (35.3-44.9); Hemoglobin 7.8 g/dL (11.5-15.4); Mean Corpuscular HGB Conc 31.8 g/dL (31.6-35.5); Mean Corpuscular Hemoglobin 28.8 pg (28.0-33.3); Mean Corpuscular Volume 90.4 fL (83.0-100.0); Mean Platelet Volume 9.9 fL (9.4-12.4); Platelet Count 267 K/mcL (140-400); Red Blood Count 2.71 M/mcL (3.82-4.97); Red Cell Distribution Width 14.6 % (11.5-14.5)
[2017-12-24 05:42] LABS: Calcium 8.7 mg/dL (8.6-10.3); Potassium 3.5 mEq/L (3.5-5.1)
[2017-12-24] MEDS: Sucralfate 1 GM TABLET PO SCH ×2 (13:01→17:54)
[2017-12-24] MEDS: Lactobacillus 1 EACH CAP.SPRINK PO SCH (13:02)
[2017-12-24] MEDS: Nystatin SUSP 5 ML UD.LIQ PO SCH ×4 (13:02→20:07)
[2017-12-24] MEDS: Doxycycline 100 MG CAPSULE PO SCH ×2 (13:02→20:07)
[2017-12-24] MEDS: Anastrozole 1 MG TABLET PO SCH (13:03)
[2017-12-24] MEDS: Nystatin Cream 15 GM TUBE TP SCH ×2 (13:03→20:07)
[2017-12-24] MEDS: amLODIPine 5 MG TABLET PO SCH (13:03)
[2017-12-24] MEDS: Cholecalciferol (D-3) 1,000 UNIT TABLET PO SCH (13:03)
[2017-12-24] MEDS: Famotidine 20 MG TABLET PO SCH (13:05)
--- NOTE | 2017-12-24 14:58 | Internal Med Progress Note ---
Date of Encounter: 12/24/17 Time of Encounter: 15:40 - Subjective Interval history: [facility] Internal Med: Progress Note Patient Name: Emi Shah Date of : 1930 Patient Status: Inpatient Attending Provider: Brooks Valencia Date: 12/22/17 09:59 Initialization Date: 12/22/17 09:59 Date of Encounter: 12/22/17 Time of Encounter: 09:59 - Assessment and plan (1) Abscess of left upper extremity Current Visit: Yes Status: Acute Assessment and plan: No acute issues. Clinically mainly resolved, Finished courses of IV vanco and levaquin given per ID. she has dressing to left wrist which remains dry and intact . No pain. CV checks remained within normal limits. Patient has finished IV antibiotics and now has recommendations from infectious disease continue with oral doxycycline. This has been started. Patient remains afebrile. We will continue with current plan of care (2) HTN (hypertension) Current Visit: No Status: Chronic Assessment and plan: Vital signs remained stable. We will continue with current medications Qualifiers: Hypertension type: essential hypertension Qualified Code(s): I10 - Essential (primary) hypertension (3) Acute kidney injury Current Visit: Yes Status: Acute Assessment and plan: Patient's last set labs show creatinine remains elevated. It has been elevated since before she was transfer here. She has stage 3 renal disease. Patient's creatinine has remained stable over the past several days, but osman ins elevated from her baseline. Patient had recent nephrology appointment. We will continue with current plan of care. (4) Nausea & vomiting Current Visit: Yes Status: Acute Assessment and plan: Did hold her medications that could have interferred with her dietary intake. Pt was not eating at all due to nausea. She did vomit. Her ultrasounds looked ok. She continues to deny abd pain. She does have thrush. We have started treatment for this. Patient has some improvement in her nausea noted over the past 24 hours. We will continue to monitor closely. She did eat some yesterday and today so this is good. We will restart her low dose zoloft and low dose donezapil. Her scopolomine patch was helpful but seemed to make her drowsy. Will stop that and use prn phenergan for nausea. She is having BMs will dc iron supplement in case causing nausea Qualifiers: Vomiting type: unspecified Vomiting Intractability: unspecified Qualified Code(s): R11.2 - Nausea with vomiting, unspecified - Time Spent With Patient less than 15 minutes - Subjective Interval history: nausea much improved today with medication changes eating a little better today discussed medications that may be aggravating her nausea did adjust these she is finishing course of po doxycyline per ID p denies pain denies fever or chills denies abd pains - Constitutional Vitals: Temp Pulse Resp BP Pulse Ox 98.1 F 80 18 105/66 94 12/22/17 07:53 12/22/17 07:53 12/22/17 07:53 12/22/17 07:53 12/22/17 07:53 General appearance: Present: alert pleasant, answers questions appropriately. Absent: no acute distress - Head Head exam: Present: atraumatic, normocephalic - Eye Eye exam: Present: PERRL, conjuntiva pink, sclera anicteric Pupils: Present: PERRL - Neck Neck exam general surgery: Present: supple, trachea midline. Absent: lymphadenopathy - Respiratory Respiratory exam: Present: CTAB. Absent: accessory muscle use, rales, rhonchi, wheezes - Cardiovascular Cardiovascular exam: Present: RRR, +S1, +S2. Absent: diastolic murmur, gallop, rubs, systolic murmur - GI/Abdominal GI/Abdominal exam: Present: normal bowel sounds, soft, no peritoneal signs. Absent: distended, tenderness - Extremities Exam Extremities exam: Present: normal capillary refill, warm, radial pulses palpable and symmetrical. Absent: calf tenderness, cyanotic, pedal edema Additional comments: Left forearm and wrist with a Kerlix dressing that is dry and intact. Distal CV checks normal - Neurological Exam Neurological exam: Present: CN II-XII intact, oriented X3, no focal deficits. Absent: pronater drift, facial droop, speech deficit - Skin Skin exam: Present: dry, intact - Constitutional Vitals: Temp Pulse Resp BP Pulse Ox 98.5 F 87 16 132/80 97 12/23/17 19:40 12/23/17 19:40 12/23/17 19:40 12/23/17 19:40 12/23/17 19:40 General appearance: Present: cooperative, A&O X 3, pleasant, answers questions appropriately. Absent: no acute distress Internal Medicine: Result - Labs CBC & Chem 7: 12/24/17 05:03 12/24/17 05:03 Labs: Short CBC 12/24/17 Range/Units 05:03 WBC 4.8 (4.3-11.1) K/mcL Hgb 7.8 L (11.5-15.4) g/dL Hct 24.5 L (35.3-44.9) % Plt Count 267 (140-400) K/mcL BMP 12/24/17 05:03 Sodium 139 Potassium 3.5 Chloride 101 Carbon Dioxide 31 H BUN 19 Creatinine 1.80 H Glucose 96 Calcium 8.7 Consult Discharge Plan - Plan Referrals: Conchis Escobar, TRANSONIC ENGINEER [Primary Care Provider] -
[2017-12-24] MEDS: Latanoprost 2.5 ML BOTTLE BOTH EYES SCH (20:08)
[2017-12-24] MEDS: Acetaminophen 325 MG TABLET PO PRN (20:16)
[2017-12-25] MEDS: Ipratropium/Albuterol Neb 3 ML IH SCH ×4 (04:15→22:00)
[2017-12-25 05:47] LABS: Hematocrit 27.4 % (35.3-44.9); Hemoglobin 8.7 g/dL (11.5-15.4); Mean Corpuscular HGB Conc 31.8 g/dL (31.6-35.5); Mean Corpuscular Hemoglobin 28.6 pg (28.0-33.3); Mean Corpuscular Volume 90.1 fL (83.0-100.0); Mean Platelet Volume 10.1 fL (9.4-12.4); Platelet Count 302 K/mcL (140-400); Red Blood Count 3.04 M/mcL (3.82-4.97); Red Cell Distribution Width 14.6 % (11.5-14.5)
[2017-12-25 06:01] LABS: Calcium 8.9 mg/dL (8.6-10.3); Potassium 3.4 mEq/L (3.5-5.1)
[2017-12-25] MEDS: Sucralfate 1 GM TABLET PO SCH ×2 (06:02→16:37)
[2017-12-25] MEDS: Famotidine 20 MG TABLET PO SCH (06:02)
[2017-12-25] MEDS: Lactobacillus 1 EACH CAP.SPRINK PO SCH (08:33)
[2017-12-25] MEDS: Doxycycline 100 MG CAPSULE PO SCH ×2 (08:33→20:00)
[2017-12-25] MEDS: amLODIPine 5 MG TABLET PO SCH (08:34)
[2017-12-25] MEDS: Nystatin SUSP 5 ML UD.LIQ PO SCH ×4 (08:34→20:01)
[2017-12-25] MEDS: Cholecalciferol (D-3) 1,000 UNIT TABLET PO SCH (08:34)
[2017-12-25] MEDS: Anastrozole 1 MG TABLET PO SCH (08:34)
[2017-12-25] MEDS: Nystatin Cream 15 GM TUBE TP SCH ×2 (08:35→20:01)
[2017-12-25] MEDS: Acetaminophen 325 MG TABLET PO PRN ×2 (08:41→20:03)
--- NOTE | 2017-12-25 13:27 | Internal Med Progress Note ---
Addendum entered and electronically signed by Yaritza Dennis 12/25/17 17:01: I have personally performed a face to face evaluation on this patient. I have reviewed and agree with the care plan. Original Note: Date of Encounter: 12/25/17 Time of Encounter: 13:25 - Assessment and plan (1) HTN (hypertension) Current Visit: Yes Status: Chronic Assessment and plan: Controlled. Continue current medication. Monitor blood pressure. Qualifiers: Hypertension type: essential hypertension Qualified Code(s): I10 - Essential (primary) hypertension (2) Abscess of left upper extremity Current Visit: Yes Status: Acute Assessment and plan: Improving. Follow up with infectious disease as scheduled. Continue doxycy mazariegos. (3) Acute kidney injury Current Visit: Yes Status: Acute Assessment and plan: Creatinine stable Will continue to try and labs. Follow up with nephrology as scheduled. (4) Anemia Current Visit: Yes Status: Chronic Assessment and plan: Stable. Hemoglobin 8.7 Qualifiers: Anemia type: unspecified type Qualified Code(s): D64.9 - Anemia, unspeci fied - Time Spent With Patient less than 15 minutes - Subjective Interval history: Patient sitting in chair. Continues to wear oxygen per nasal cannula as needed.. Encouraged incentive spirometer. Denies shortness of breath, chest pain. Denies fever, chills, nausea vomiting or diarrhea. Participating well with therapy. Transfers with min to mod assist. States pain is controlled. Patient is on PO doxycycline. - Constitutional Vitals: Temp Pulse Resp BP Pulse Ox 98.4 F 74 18 138/82 98 12/25/17 07:07 12/25/17 07:07 12/25/17 10:27 12/25/17 07:07 12/25/17 10:27 General appearance: Present: cooperative, A&O X 3, pleasant, answers questions appropriately. Absent: no acute distress - Head Head exam: Present: atraumatic, normocephalic - Eye Eye exam: Present: PERRL, conjuntiva pink, sclera anicteric Pupils: Present: PERRL - Neck Neck exam general surgery: Present: supple, trachea midline. Absent: lymphadenopathy - Respiratory Respiratory exam: Present: CTAB. Absent: accessory muscle use, rales, rhonchi, wheezes - Cardiovascular Cardiovascular exam: Present: RRR, +S1, +S2. Absent: diastolic murmur, gallop, rubs, systolic murmur - GI/Abdominal GI/Abdominal exam: Present: normal bowel sounds, soft, no peritoneal signs. Absent: distended, tenderness - Extremities Exam Extremities exam: Present: warm, radial pulses palpable and symmetrical. Absent: calf tenderness, cyanotic, pedal edema - Incison Comments: Left forearm incision. Healing. Well granulated tissue in wound bed. No drainage. Slight edema 2 fingers. - Neurological Exam Neurological exam: Present: CN II-XII intact, oriented X3, no focal deficits. Absent: pronater drift, facial droop, speech deficit - Skin Skin exam: Present: dry, intact Internal Medicine: Result - Labs CBC & Chem 7: 12/25/17 05:30 12/25/17 05:30 Labs: Short CBC 12/25/17 Range/Units 05:30 WBC 4.8 (4.3-11.1) K/mcL Hgb 8.7 L (11.5-15.4) g/dL Hct 27.4 L (35.3-44.9) % Plt Count 302 (140-400) K/mcL BMP 12/25/17 05:30 Sodium 141 Potassium 3.4 L Chloride 99 Carbon Dioxide 32 H BUN 18 Creatinine 1.69 H Glucose 96 Calcium 8.9 Consult Discharge Plan - Plan Referrals: Conchis Escobar CNP [Primary Care Provider] -
[2017-12-25] MEDS: Latanoprost 2.5 ML BOTTLE BOTH EYES SCH (20:01)
[2017-12-26 05:48] LABS: Hematocrit 26.1 % (35.3-44.9); Hemoglobin 8.4 g/dL (11.5-15.4); Mean Corpuscular HGB Conc 32.2 g/dL (31.6-35.5); Mean Corpuscular Hemoglobin 28.9 pg (28.0-33.3); Mean Corpuscular Volume 89.7 fL (83.0-100.0); Platelet Count 269 K/mcL (140-400); Red Blood Count 2.91 M/mcL (3.82-4.97); Red Cell Distribution Width 14.6 % (11.5-14.5)
[2017-12-26] MEDS: Ipratropium/Albuterol Neb 3 ML IH SCH ×4 (05:48→21:42)
[2017-12-26] MEDS: Famotidine 20 MG TABLET PO SCH (05:50)
[2017-12-26] MEDS: Sucralfate 1 GM TABLET PO SCH ×2 (05:50→19:12)
[2017-12-26 06:05] LABS: Calcium 8.5 mg/dL (8.6-10.3); Potassium 3.3 mEq/L (3.5-5.1)
[2017-12-26] MEDS: Doxycycline 100 MG CAPSULE PO SCH ×2 (09:30→21:40)
[2017-12-26] MEDS: Cholecalciferol (D-3) 1,000 UNIT TABLET PO SCH (09:30)
[2017-12-26] MEDS: Anastrozole 1 MG TABLET PO SCH (09:30)
[2017-12-26] MEDS: Lactobacillus 1 EACH CAP.SPRINK PO SCH (09:31)
[2017-12-26] MEDS: amLODIPine 5 MG TABLET PO SCH (09:31)
[2017-12-26] MEDS: Nystatin Cream 15 GM TUBE TP SCH ×2 (09:32→21:41)
[2017-12-26] MEDS: Ondansetron ODT 4 MG TAB.RAPDIS SL PRN (09:32)
[2017-12-26] MEDS: Nystatin SUSP 5 ML UD.LIQ PO SCH ×4 (09:32→21:41)
--- NOTE | 2017-12-26 11:00 | Internal Med Progress Note ---
Addendum entered and electronically signed by Yaritza Dennis 12/26/17 13:55: I have personally performed a face to face evaluation on this patient. I have reviewed and agree with the care plan. History and Exam by me shows: pt more alert today appetite improving starting to take in more po. Pt xray not much change from previous pt at risk for atalectasis as she is a shallow breather, working on correcting this. Pt improved somewhat today. Creatinine improving. K replaced Original Note: Date of Encounter: 12/26/17 Time of Encounter: 10:57 - Assessment and plan (1) HTN (hypertension) Current Visit: Yes Status: Chronic Assessment and plan: Controlled. Continue current medication. Monitor blood pressure. Qualifiers: Hypertension type: essential hypertension Qualified Code(s): I10 - Boris al (primary) hypertension (2) Abscess of left upper extremity Current Visit: Yes Status: Acute Assessment and plan: Improving. Follow up with infectious disease as scheduled. Continue doxycycline. (3) Acute kidney injury Current Visit: Yes Status: Acute Assessment and plan: Creatinine stable Will continue to try and labs. Follow up with nephrology as scheduled. BUn 19, CR 1.44 (4) Anemia Current Visit: Yes Status: Chronic Assessment and plan: Stable. Hemoglobin 8.4 Qualifiers: Anemia type: unspecified type Qualified Code(s): D64.9 - Anemia, unspecified (5) Hypokalemia Current Visit: Yes Status: Acute Assessment and plan: K 3.3. will add KCL 20meg PO for 2 days, repeat BMP in am. - Time Spent With Patient less than 15 minutes - Subjective Interval history: Patient sitting in chair. Continues to wear oxygen per nasal cannula as needed. Continues pulse ox remained greater than 95% through the night. Encouraged incentive spirometer. Denies shortness of breath, chest pain. Denies fever, or diarrhea. Participating well with therapy. Transfers with min to [facility] ist. States pain is controlled. Patient is on PO doxycycline. One episode of vomiting this morning. Patient had 1 episode of vomitting and was nauseated when she got up. Zofran relieved nausea. was able to eat a small amt of breakfast. maintaining hydration. - Constitutional Vitals: Temp Pulse Resp BP Pulse Ox 97.8 F 67 16 154/78 94 12/26/17 07:00 12/26/17 07:00 12/26/17 07:00 12/26/17 07:00 12/26/17 10:00 General appearance: Present: cooperative, A&O X 3, pleasant, answers questions appropriately. Absent: no acute distress - Head Head exam: Present: atraumatic, normocephalic - Eye Eye exam: Present: PERRL, conjuntiva pink, sclera anicteric Pupils: Present: PERRL - Neck Neck exam general surgery: Present: supple, trachea midline. Absent: lymphade nopathy - Respiratory Respiratory exam: Present: CTAB. Absent: accessory muscle use, rales, rhonchi, wheezes - Cardiovascular Cardiovascular exam: Present: RRR, +S1, +S2. Absent: diastolic murmur, gallop, rubs, systolic murmur - GI/Abdominal GI/Abdominal exam: Present: normal bowel sounds, soft, no peritoneal signs. Absent: distended, tenderness - Extremities Exam Extremities exam: Present: warm, radial pulses palpable and symmetrical. Absent: calf tenderness, cyanotic, pedal edema - Incison Comments: left wrist drsg dry and intact. - Neurological Exam Neurological exam: Present: CN II-XII intact, oriented X3, no focal deficits. Absent: pronater drift, facial droop, speech deficit - Skin Skin exam: Present: dry, intact Internal Medicine: Result - Labs CBC & Chem 7: 12/26/17 05:25 12/26/17 05:25 Labs: Short CBC 12/26/17 Range/Units 05:25 WBC 5.1 (4.3-11.1) K/mcL Hgb 8.4 L (11.5-15.4) g/dL Hct 26.1 L (35.3-44.9) % Plt Count 269 (140-400) K/mcL BMP 12/26/17 05:25 Sodium 142 Potassium 3.3 L Chloride 102 Carbon Dioxide 32 H BUN 19 Creatinine 1.44 H Glucose 109 H Calcium 8.5 L - Impressions Impressions Chest X-Ray 12/25/17 14:04 IMPRESSION: Stable left basilar opacification could represent pleural fluid combined with atelectasis or pneumonia D/ / Kenneth Casas MD / Kenneth Casas MD Interpreting Provider: Kenneth Casas MD Consult Discharge Plan - Plan Referrals: Conchis Escobar CNP [Primary Care Provider] -
[2017-12-26] MEDS: Acetaminophen 325 MG TABLET PO PRN (21:41)
[2017-12-26] MEDS: Latanoprost 2.5 ML BOTTLE BOTH EYES SCH (21:43)
[2017-12-27] MEDS: Ipratropium/Albuterol Neb 3 ML IH SCH ×4 (04:00→20:37)
[2017-12-27 05:26] LABS: Hematocrit 26.5 % (35.3-44.9); Hemoglobin 8.3 g/dL (11.5-15.4); Mean Corpuscular HGB Conc 31.3 g/dL (31.6-35.5); Mean Corpuscular Hemoglobin 28.3 pg (28.0-33.3); Mean Corpuscular Volume 90.4 fL (83.0-100.0); Mean Platelet Volume 9.6 fL (9.4-12.4); Platelet Count 249 K/mcL (140-400); Red Blood Count 2.93 M/mcL (3.82-4.97); Red Cell Distribution Width 14.6 % (11.5-14.5)
[2017-12-27 05:40] LABS: Calcium 8.3 mg/dL (8.6-10.3); Potassium 3.1 mEq/L (3.5-5.1)
[2017-12-27] MEDS: Sucralfate 1 GM TABLET PO SCH ×2 (06:27→17:41)
[2017-12-27] MEDS: Famotidine 20 MG TABLET PO SCH (06:27)
[2017-12-27] MEDS: Cholecalciferol (D-3) 1,000 UNIT TABLET PO SCH (10:21)
[2017-12-27] MEDS: Doxycycline 100 MG CAPSULE PO SCH ×2 (10:22→20:36)
[2017-12-27] MEDS: Lactobacillus 1 EACH CAP.SPRINK PO SCH (10:22)
[2017-12-27] MEDS: Nystatin SUSP 5 ML UD.LIQ PO SCH ×4 (10:23→20:36)
[2017-12-27] MEDS: Nystatin Cream 15 GM TUBE TP SCH ×2 (10:23→20:36)
[2017-12-27] MEDS: Anastrozole 1 MG TABLET PO SCH (10:23)
[2017-12-27] MEDS: amLODIPine 5 MG TABLET PO SCH (10:23)
--- NOTE | 2017-12-27 11:27 | Rehab Psychology Progress Note ---
Addendum entered and electronically signed by Yaritza Dennis 12/27/17 12:00: I have personally performed a face to face evaluation on this patient. I have reviewed and agree with the care plan. Original Note: Date of Encounter: 12/27/17 Time of Encounter: 09:45 Subjective - Patient Report Patient Report: Pt sitting comfortably in chair on oxygen. She stated she was happy to have had her first shower in a while (approximately 6 weeks). Objective - Comments Functional Status Comments: Oriented X3. Able to immediately recall4/4 words and 1/4 after 5 minutes and 3/4 words with cuing. Discussed episode of confusion the other night and she feels it was due to medications being off. Discussed relationship with and his understanding of how much she did around the house, thus he is more appreciative of her. Discussed her concerns with ability to cook, clean, and keep things going as before. She stated this is the longest they have been apart and the sickest she has ever been. Her anxiety is more controlled and generally she is feeling better and hopeful. She uses relaxation techniques- deep breathing , visual imagery, as needed. Assessment and Plan - Diagnosis (1) Mood disorder - Response to Treatment Response to Treatment: Improved - Prognosis Prognosis: Good - Treatment Plan Treatment Plan Recommendations: Continue Current Plan/Goals Treatment Frequency: weekly while inpatient Next Session Date: 01/03/18 Procedures - Intervention Interventions: Cognitive/Behavioral Therapy - Modality Modality: Psychotherapy 30 minutes - Participants Therapy Participant: Patient - Session Time Session Start Time: 09:45 Session Stop Time: 10:15
--- NOTE | 2017-12-27 13:14 | Internal Med Progress Note ---
Date of Encounter: 12/27/17 Time of Encounter: 13:12 - Assessment and plan (1) HTN (hypertension) Current Visit: Yes Status: Chronic Assessment and plan: Controlled. Continue current medication. Monitor blood pressure. Qualifiers: Hypertension type: essential hypertension Qualified Code(s): I10 - Essential (primary) hypertension (2) Abscess of left upper extremity Current Visit: Yes Status: Acute Assessment and plan: Improving. Follow up with infectious disease as scheduled. Continue doxycycline. (3) Acute kidney injury Current Visit: Yes Status: Acute Assessment and plan: Creatinine improving Will continue to trend labs. Follow up with nephrology as scheduled. BUn 19, CR 1.21 (4) Anemia Current Visit: Yes Status: Chronic Assessment and plan: Stable. Hemoglobin 8.3 Qualifiers: Anemia type: unspecified type Qualified Code(s): D64.9 - Anemia, unspecified (5) Hypokalemia Current Visit: Yes Status: Acute Assessment and plan: K 3.1. will add KCL 20meq PO for 2 days, repeat BMP in am. - Time Spent With Patient less than 15 minutes - Subjective Interval history: Participating well with therapy. 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 Required many safety cues ambulating with Walker. Oxygen saturation remains greater than 95% with 2 L per nasal cannula. Will increased Zoloft to 50 mg. Was previously taking 150 mg prior to admission. Will slowly increased dosage. Patient denies fever, chills, nausea, vomiting or diarrhea. Denies shortness of breath or chest pain. Encourage to Senate spirometer. - Constitutional Vitals: Temp Pulse Resp BP Pulse Ox 97.9 F 80 19 148/84 99 12/27/17 06:44 12/27/17 06:44 12/27/17 09:41 12/27/17 06:44 12/27/17 10:00 General appearance: Present: cooperative, A&O X 3, pleasant, answers questions appropriately. Absent: no acute distress - Head Head exam: Present: atraumatic, normocephalic - Eye Eye exam: Present: PERRL, conjuntiva pink, sclera anicteric Pupils: Present: PERRL - Neck Neck exam general surgery: Present: supple, trachea midline. Absent: lymphadenopathy - Respiratory Respiratory exam: Present: CTAB. Absent: accessory muscle use, rales, rhonchi, wheezes - Cardiovascular Cardiovascular exam: Present: RRR, +S1, +S2. Absent: diastolic murmur, gallop, rubs, systolic murmur - GI/Abdominal GI/Abdominal exam: Present: normal bowel sounds, soft, no peritoneal signs. Absent: distended, tenderness - Extremities Exam Extremities exam: Present: warm, radial pulses palpable and symmetrical. Absent: calf tenderness, cyanotic, pedal edema - Incison Comments: Left wrist\forearm incision dressing dry and intact. - Neurological Exam Neurological exam: Present: CN II-XII intact, oriented X3, no focal deficits. Absent: pronater drift, facial droop, speech deficit - Skin Skin exam: Present: dry, intact Internal Medicine: Result - Labs CBC & Chem 7: 12/27/17 05:09 12/27/17 05:09 Labs: Short CBC 12/27/17 Range/Units 05:09 WBC 4.7 (4.3-11.1) K/mcL Hgb 8.3 L (11.5-15.4) g/dL Hct 26.5 L (35.3-44.9) % Plt Count 249 (140-400) K/mcL BMP 12/27/17 05:09 Sodium 142 Potassium 3.1 L Chloride 103 Carbon Dioxide 33 H BUN 14 Creatinine 1.21 H Glucose 101 Calcium 8.3 L Consult Discharge Plan - Plan Referrals: Conchis Escobar CNP [Primary Care Provider] -
[2017-12-27] MEDS: Latanoprost 2.5 ML BOTTLE BOTH EYES SCH (20:36)
[2017-12-27] MEDS: Acetaminophen 325 MG TABLET PO PRN (20:36)
[2017-12-28] MEDS: Ipratropium/Albuterol Neb 3 ML IH SCH ×4 (04:30→21:20)
[2017-12-28] MEDS: Ondansetron ODT 4 MG TAB.RAPDIS SL PRN (05:07)
[2017-12-28] MEDS: Sucralfate 1 GM TABLET PO SCH ×2 (05:07→17:30)
[2017-12-28] MEDS: Famotidine 20 MG TABLET PO SCH (05:07)
[2017-12-28 06:26] LABS: Calcium 8.6 mg/dL (8.6-10.3); Potassium 3.2 mEq/L (3.5-5.1)
[2017-12-28] MEDS: Nystatin SUSP 5 ML UD.LIQ PO SCH ×4 (08:33→21:19)
[2017-12-28] MEDS: Nystatin Cream 15 GM TUBE TP SCH ×2 (08:34→21:19)
[2017-12-28] MEDS: Anastrozole 1 MG TABLET PO SCH (08:34)
[2017-12-28] MEDS: Cholecalciferol (D-3) 1,000 UNIT TABLET PO SCH (08:34)
[2017-12-28] MEDS: amLODIPine 5 MG TABLET PO SCH (08:34)
[2017-12-28] MEDS: Lactobacillus 1 EACH CAP.SPRINK PO SCH (08:34)
[2017-12-28] MEDS: Doxycycline 100 MG CAPSULE PO SCH ×2 (08:34→21:15)
--- NOTE | 2017-12-28 11:55 | Internal Med Progress Note ---
Addendum entered and electronically signed by Yaritza Dennis 12/28/17 13:35: I have personally performed a face to face evaluation on this patient. I have reviewed and agree with the care plan. Original Note: Date of Encounter: 12/28/17 Time of Encounter: 11:53 - Assessment and plan (1) Abscess of left upper extremity Current Visit: Yes Status: Acute Assessment and plan: No acute issues. He has dressing to left wrist which remains dry and intact with continued slight swelling of the left hand. CV checks remained within normal limits. Patient with complaints of slight pain during mobilization of left wrist. Patient continues on oral doxycycline per infectious disease. Patient's renal status has continue to progress back to her normal state. Patient remains afebrile. Continues on therapy. No acute issues. (2) HTN (hypertension) Current Visit: Yes Status: Chronic Assessment and plan: Vital signs remained stable. We will continue with current medications Qualifiers: Hypertension type: essential hypertension Qualified Code(s): I10 - Essential (primary) hypertension (3) Acute kidney injury Current Visit: Yes Status: Acute Assessment and plan: Patient's renal status continues to progress back to her normal state with most recent creatinine at 1.17. We will continue to monitor with serial labs. (4) Mood disorder Current Visit: Yes Status: Chronic Assessment and plan: No acute issues at this time. Nursing states patient has had no behavior issues in the last 24 hours. Patient was pleasant and cooperative during interview. - Time Spent With Patient less than 15 minutes - Subjective Interval history: Patient appears relaxed currently denies any discomforts or shortness of breath. Patient does state that when she moves her left wrist and she does have increased pain. Left wrist with dressing in place and noted slight swelling to the left hand. Patient continues on doxycycline orally per infectious disease. Patient currently is appropriate with conversation's and appears relaxed. - Constitutional Vitals: Temp Pulse Resp BP Pulse Ox 98.1 F 77 18 152/71 95 12/28/17 06:34 12/28/17 06:34 12/28/17 09:13 12/28/17 06:34 12/28/17 09:13 General appearance: Present: cooperative, A&O X 3, pleasant, answers questions appropriately. Absent: no acute distress - Head Head exam: Present: atraumatic, normocephalic - Eye Eye exam: Present: PERRL, conjuntiva pink, sclera anicteric Pupils: Present: PERRL - Neck Neck exam general surgery: Present: supple, trachea midline. Absent: lymph adenopathy - Respiratory Respiratory exam: Present: CTAB. Absent: accessory muscle use, rales, rhonchi, wheezes - Cardiovascular Cardiovascular exam: Present: RRR, +S1, +S2. Absent: diastolic murmur, gallop, rubs, systolic murmur - GI/Abdominal GI/Abdominal exam: Present: normal bowel sounds, soft, no peritoneal signs. Absent: distended, tenderness - Extremities Exam Extremities exam: Present: warm, radial pulses palpable and symmetrical. Absent: calf tenderness, cyanotic, pedal edema Additional comments: Left forearm and wrist dressing is dry and intact - Neurological Exam Neurological exam: Present: CN II-XII intact, oriented X3, no focal deficits. Absent: pronater drift, facial droop, speech deficit - Skin Skin exam: Present: dry, intact Internal Medicine: Result - Labs CBC & Chem 7: 12/27/17 05:09 12/28/17 05:40 Labs: BMP 12/28/17 05:40 Sodium 140 Potassium 3.2 L Chloride 100 Carbon Dioxide 33 H BUN 14 Creatinine 1.17 Glucose 98 Calcium 8.6 Consult Discharge Plan - Plan Referrals: Conchis Escobar CNP [Primary Care Provider] -
[2017-12-28] MEDS: Acetaminophen 325 MG TABLET PO PRN (17:30)
[2017-12-28] MEDS: Latanoprost 2.5 ML BOTTLE BOTH EYES SCH (21:17)
[2017-12-29] MEDS: Ipratropium/Albuterol Neb 3 ML IH SCH ×4 (04:02→21:24)
[2017-12-29] MEDS: Acetaminophen 325 MG TABLET PO PRN (05:34)
[2017-12-29] MEDS: Famotidine 20 MG TABLET PO SCH (06:42)
[2017-12-29] MEDS: Sucralfate 1 GM TABLET PO SCH ×2 (06:42→17:07)
[2017-12-29] MEDS: Lactobacillus 1 EACH CAP.SPRINK PO SCH (08:05)
[2017-12-29] MEDS: Doxycycline 100 MG CAPSULE PO SCH ×2 (08:05→21:23)
[2017-12-29] MEDS: Magnesium Oxide 400 MG TABLET PO SCH (08:06)
[2017-12-29] MEDS: Anastrozole 1 MG TABLET PO SCH (08:06)
[2017-12-29] MEDS: Cholecalciferol (D-3) 1,000 UNIT TABLET PO SCH (08:06)
[2017-12-29] MEDS: Nystatin SUSP 5 ML UD.LIQ PO SCH ×4 (08:06→21:24)
[2017-12-29] MEDS: amLODIPine 5 MG TABLET PO SCH (08:06)
[2017-12-29] MEDS: Nystatin Cream 15 GM TUBE TP SCH ×2 (08:07→21:24)
[2017-12-29] MEDS ORDERED: Hydrocortisone Acetate 25 MG RECTAL SUPPOSITORY RC PRN (11:41)
--- NOTE | 2017-12-29 12:01 | Internal Med Progress Note ---
Addendum entered and electronically signed by Yaritza Dennis 12/29/17 18:43: I have personally performed a face to face evaluation on this patient. I have reviewed and agree with the care plan. Original Note: Date of Encounter: 12/29/17 Time of Encounter: 11:59 - Assessment and plan (1) Abscess of left upper extremity Current Visit: Yes Status: Acute Assessment and plan: No acute issues. He has dressing to left wrist which remains dry and intact with continued slight swelling of the left hand. CV checks remained within normal limits. States pain tolerable with current medications. Patient continues on oral doxycycline per infectious disease. Patient remains afebrile. Continues on therapy. No acute issues. (2) HTN (hypertension) Current Visit: Yes Status: Chronic Assessment and plan: Vital signs remained stable. We will continue with current medications Qualifiers: Hypertension type: essential hypertension Qualified Code(s): I10 - Essential (primary) hypertension (3) Acute kidney injury Current Visit: Yes Status: Acute Assessment and plan: Patient's renal status continues to progress back to her normal state with most recent creatinine at 1.17. We will continue to monitor with serial labs in the morning. (4) Mood disorder Current Visit: Yes Status: Chronic Assessment and plan: No acute issues at this time. Nursing states patient has had no behavior issues in the last 24 hours. Patient was pleasant and cooperative during interview. (5) Acute hemorrhoid Current Visit: Yes Status: Acute Assessment and plan: Patient complaints of pain during bowel movement stating that she has a flareup of her hemorrhoids. No external hemorrhoids noted. Patient started on Anusol HC suppositories. We will review patient's laxatives was stool softeners - Subjective Interval history: Patient appears relaxed currently denies any discomforts or shortness of breath. Patient states that she does have some difficulty have not BM due to hemorrhoids. Patient does state that when she moves her left wrist and she does have increased pain. Left wrist with dressing in place and noted slight swelling to the left hand. Patient continues on doxycycline orally per infectious disease. Patient currently is appropriate with conversation's and appears relaxed. - Constitutional Vitals: Temp Pulse Resp BP Pulse Ox 98.4 F 90 16 170/89 92 12/29/17 08:40 12/29/17 08:40 12/29/17 08:40 12/29/17 08:40 12/29/17 08:40 General appearance: Present: cooperative, A&O X 3, pleasant, answers questions appropriately. Absent: no acute distress - Head Head exam: Present: atraumatic, normocephalic - Eye Eye exam: Present: PERRL, conjuntiva pink, sclera anicteric Pupils: Present: PERRL - Neck Neck exam general surgery: Present: supple, trachea midline. Absent: lymphadenopathy - Respiratory Respiratory exam: Present: CTAB. Absent: accessory muscle use, rales, rhonchi, wheezes - Cardiovascular Cardiovascular exam: Present: RRR, +S1, +S2. Absent: diastolic murmur, gallop, rubs, systolic murmur - GI/Abdominal GI/Abdominal exam: Present: normal bowel sounds, soft, no peritoneal signs. Absent: distended, tenderness Additional comments: No external hemorrhoids noted - Extremities Exam Extremities exam: Present: warm, radial pulses palpable and symmetrical. Absent: calf tenderness, cyanotic, pedal edema Additional comments: Dressing to left forearm remains dry and intact - Neurological Exam Neurological exam: Present: CN II-XII intact, oriented X3, no focal deficits. Absent: pronater drift, facial droop, speech deficit - Skin Skin exam: Present: dry, intact Internal Medicine: Result - Labs CBC & Chem 7: 12/27/17 05:09 12/28/17 05:40 Consult Discharge Plan - Plan Referrals: Conchis Escobar CNP [Primary Care Provider] -
[2017-12-29] MEDS: Sennosides 8.6 MG TABLET PO SCH (21:22)
[2017-12-29] MEDS: Latanoprost 2.5 ML BOTTLE BOTH EYES SCH (21:24)
[2017-12-30] MEDS: Ipratropium/Albuterol Neb 3 ML IH SCH ×4 (05:50→20:36)
[2017-12-30 06:19] LABS: Basophils % 0.5 %; Eosinophils # 0.2 K/mcL (0.0-0.6); Eosinophils % 3.1 %; Hematocrit 27.3 % (35.3-44.9); Hemoglobin 8.6 g/dL (11.5-15.4); Immature Granulocytes % 0.5 % (0-4); Lymphocytes # 0.6 K/mcL (0.6-4.6); Lymphocytes % 11.5 %; Mean Corpuscular HGB Conc 31.5 g/dL (31.6-35.5); Mean Corpuscular Hemoglobin 28.2 pg (28.0-33.3); Mean Corpuscular Volume 89.5 fL (83.0-100.0); Mean Platelet Volume 10.4 fL (9.4-12.4); Monocytes # 0.4 K/mcL (0.0-1.3); Monocytes % 7.1 %; Neutrophils # 4.2 K/mcL (1.6-8.9); Platelet Count 225 K/mcL (140-400); Red Blood Count 3.05 M/mcL (3.82-4.97); Red Cell Distribution Width 14.6 % (11.5-14.5); Segmented Neutrophils % 77.3 %
[2017-12-30 06:32] LABS: Alanine Aminotransferase 13 Units/L (7-52); Albumin 2.7 g/dL (3.5-5.7); Alkaline Phosphatase 64 Units/L (34-104); Aspartate Amino Transferase 13 Units/L (13-39); BUN/Creatinine Ratio 15 (6-26); Bilirubin,Total 0.4 mg/dL (0.3-1.0); Blood Urea Nitrogen 14 mg/dL (8-23); Calcium 8.6 mg/dL (8.6-10.3); Carbon Dioxide 29 mEq/L (23-29); Chloride 103 mEq/L (98-107); Globulin 2.8 g/dL (2.4-3.5); Glucose 96 mg/dL (70-105); Magnesium 1.5 mg/dL (1.6-2.6); Osmolality,Calculated 286 (280-300); Sodium 138 mEq/L (136-145); Total Protein 5.5 g/dL (6.4-8.9); eGFR For Non-African Americans 57 (> 60)
[2017-12-30] MEDS: Famotidine 20 MG TABLET PO SCH (08:29)
[2017-12-30] MEDS: Doxycycline 100 MG CAPSULE PO SCH ×2 (08:31→20:30)
[2017-12-30] MEDS: Nystatin Cream 15 GM TUBE TP SCH ×2 (08:31→20:30)
[2017-12-30] MEDS: Lactobacillus 1 EACH CAP.SPRINK PO SCH (09:33)
[2017-12-30] MEDS: Cholecalciferol (D-3) 1,000 UNIT TABLET PO SCH (09:33)
[2017-12-30] MEDS: Sennosides 8.6 MG TABLET PO SCH ×2 (09:34→20:30)
[2017-12-30] MEDS: Anastrozole 1 MG TABLET PO SCH (09:34)
[2017-12-30] MEDS: Magnesium Oxide 400 MG TABLET PO SCH (09:34)
[2017-12-30] MEDS: amLODIPine 5 MG TABLET PO SCH (09:34)
[2017-12-30] MEDS: Nystatin SUSP 5 ML UD.LIQ PO SCH ×4 (09:34→20:33)
[2017-12-30] MEDS: Sucralfate 1 GM TABLET PO SCH ×2 (09:34→16:54)
[2017-12-30] MEDS: Latanoprost 2.5 ML BOTTLE BOTH EYES SCH (20:31)
[2017-12-30] MEDS: Acetaminophen 325 MG TABLET PO PRN (20:32)
[2017-12-31] MEDS: Ipratropium/Albuterol Neb 3 ML IH SCH ×2 (05:07→10:20)
[2017-12-31] MEDS: Doxycycline 100 MG CAPSULE PO SCH ×2 (07:52→21:11)
[2017-12-31] MEDS: Famotidine 20 MG TABLET PO SCH (07:52)
[2017-12-31] MEDS: Nystatin SUSP 5 ML UD.LIQ PO SCH ×4 (07:52→21:11)
[2017-12-31] MEDS: Magnesium Oxide 400 MG TABLET PO SCH ×2 (07:52→21:11)
[2017-12-31] MEDS: amLODIPine 5 MG TABLET PO SCH (07:52)
[2017-12-31] MEDS: Sennosides 8.6 MG TABLET PO SCH ×2 (07:52→21:11)
[2017-12-31] MEDS: Sucralfate 1 GM TABLET PO SCH ×2 (07:52→16:40)
[2017-12-31] MEDS: Nystatin Cream 15 GM TUBE TP SCH ×2 (07:53→21:12)
[2017-12-31] MEDS: Cholecalciferol (D-3) 1,000 UNIT TABLET PO SCH (07:53)
[2017-12-31] MEDS: Lactobacillus 1 EACH CAP.SPRINK PO SCH (07:53)
[2017-12-31] MEDS: Acetaminophen 325 MG TABLET PO PRN (13:07)
[2017-12-31] MEDS ORDERED: Ipratropium/Albuterol Neb 3 ML IH PRN (13:10)
--- NOTE | 2017-12-31 13:45 | Internal Med Progress Note ---
Date of Encounter: 12/30/17 Time of Encounter: 15:50 - Subjective Interval history: [facility] Internal Med: Progress Note Patient Name: Emi Shah Date of : 1930 Patient Status: Inpatient Attending Provider: Brooks Valencia Date: 12/22/17 09:59 Initialization Date: 12/22/17 09:59 Date of Encounter: 12/22/17 Time of Encounter: 09:59 - Assessment and plan (1) Abscess of left upper extremity Current Visit: Yes Status: Acute Assessment and plan: No acute issues. Clinically mainly resolved, Finished courses of IV vanco and levaquin given per ID. Finishing course of PO doxycycine per ID. she has dressing to left wrist which remains dry and intact . No pain. CV checks remained within normal limits. PT is much improved with this. Patient remains afebrile. We will continue with current plan of care (2) HTN (hypertension) Current Visit: No Status: Chronic Assessment and plan: Vital signs remained stable. We will continue with current medications Qualifiers: Hypertension type: essential hypertension Qualified Code(s): I10 - Essen tial (primary) hypertension (3) Acute kidney injury Current Visit: Yes Status: Acute Assessment and plan: Patient's last set labs show creatinine improving was up to 2.5 now 0.9. It has been elevated since before she was transfer here. She has stage 3 renal disease. She has upcoming nephrology appointment. We will continue with current plan of care. (4) Nausea & vomiting Current Visit: Yes Status: Acute Assessment and plan: Did hold her medications that could have interferred with her dietary intake. Pt was not eating at all due to nausea. She did vomit. Her ultrasounds looked ok. She continues to deny abd pain. She does have thrush. We have started treatment for this. Patient has some improvement in her nausea noted over the past 24 hours. We will continue to monitor closely. She did eat some yesterday and today so this is good. We will restart her low dose zoloft and low dose donezapil. Her scopolomine patch was helpful but seemed to make her drowsy. Will stop that and use prn phenergan for nausea. She is having BMs will dc iron supplement in case causing nausea Qualifiers: Vomiting type: unspecified Vomiting Intractability: unspecified Qualified Code(s): R11.2 - Nausea with vomiting, unspecified (5) hypokalemia - acute on chronic remains low on k 20 meq per day diet was very poor but now intake has improved will increase to 20 meq bid and recheck may have chronic renal wasting of K (6) hypomagnesia will continue po mag and increase from once to twice a day mag level remains low at 1.5 - Time Spent With Patient less than 15 minutes - Subjective Interval history: she is overall much improved nausea was a big problem but now on lower dose of zoloft and dementia medication, she is much improved and eating would not change doses back to home dose as may bring nausea and vomiting back p denies pain denies fever or chills denies abd pains - Constitutional Vitals: Temp Pulse Resp BP Pulse Ox 98.1 F 80 18 105/66 94 12/22/17 07:53 12/22/17 07:53 12/22/17 07:53 12/22/17 07:53 12/22/17 07:53 General appearance: Present: alert pleasant, answers questions appropriately. Absent: no acute distress - Head Head exam: Present: atraumatic, normocephalic - Eye Eye exam: Present: PERRL, conjuntiva pink, sclera anicteric Pupils: Present: PERRL - Neck Neck exam general surgery: Present: supple, trachea midline. Absent: lymphadenopathy - Respiratory Respiratory exam: Present: CTAB. Absent: accessory muscle use, rales, rhonchi, wheezes - Cardiovascular Cardiovascular exam: Present: RRR, +S1, +S2. Absent: diastolic murmur, gallop, rubs, systolic murmur - GI/Abdominal GI/Abdominal exam: Present: normal bowel sounds, soft, no peritoneal signs. Absent: distended, tenderness - Extremities Exam Extremities exam: Present: normal capillary refill, warm, radial pulses palpable and symmetrical. Absent: calf tenderness, cyanotic, pedal edema Additional comments: Left forearm and wrist with a Kerlix dressing that is dry and intact. Distal CV checks normal - Neurological Exam Neurological exam: Present: CN II-XII intact, oriented X3, no focal deficits. Absent: pronater drift, facial droop, speech deficit - Skin Skin exam: Present: dry, intact - Constitutional Vitals: Temp Pulse Resp BP Pulse Ox 98.0 F 80 17 168/71 94 12/31/17 07:27 12/31/17 07:27 12/31/17 07:27 12/31/17 07:27 12/31/17 07:27 General appearance: Present: cooperative, A&O X 3, pleasant, answers questions appropriately. Absent: no acute distress Internal Medicine: Result - Labs CBC & Chem 7: 12/30/17 05:50 12/30/17 05:50 Consult Discharge Plan - Plan Referrals: Conchis Escobar, BR[employer] LOADER AND HANDLE ATTACHER [Primary Care Provider] -
[2017-12-31] MEDS: Latanoprost 2.5 ML BOTTLE BOTH EYES SCH (21:11)
[2018-01-01 05:14] LABS: Hematocrit 27.1 % (35.3-44.9); Hemoglobin 8.5 g/dL (11.5-15.4); Mean Corpuscular HGB Conc 31.4 g/dL (31.6-35.5); Mean Corpuscular Hemoglobin 28.1 pg (28.0-33.3); Mean Corpuscular Volume 89.7 fL (83.0-100.0); Platelet Count 189 K/mcL (140-400); Red Blood Count 3.02 M/mcL (3.82-4.97); Red Cell Distribution Width 14.8 % (11.5-14.5)
[2018-01-01 05:37] LABS: BUN/Creatinine Ratio 15 (6-26); Blood Urea Nitrogen 11 mg/dL (8-23); Calcium 8.4 mg/dL (8.6-10.3); Carbon Dioxide 27 mEq/L (23-29); Chloride 106 mEq/L (98-107); Glucose 98 mg/dL (70-105); Osmolality,Calculated 291 (280-300); Potassium 3.2 mEq/L (3.5-5.1); Sodium 141 mEq/L (136-145); eGFR For Non-African Americans > 60 (> 60)
[2018-01-01] MEDS: Nystatin SUSP 5 ML UD.LIQ PO SCH ×4 (08:56→19:44)
[2018-01-01] MEDS: amLODIPine 5 MG TABLET PO SCH (08:56)
[2018-01-01] MEDS: Famotidine 20 MG TABLET PO SCH (08:56)
[2018-01-01] MEDS: Sucralfate 1 GM TABLET PO SCH ×2 (08:56→18:26)
[2018-01-01] MEDS: Lactobacillus 1 EACH CAP.SPRINK PO SCH (08:56)
[2018-01-01] MEDS: Nystatin Cream 15 GM TUBE TP SCH ×2 (08:57→19:44)
[2018-01-01] MEDS: Cholecalciferol (D-3) 1,000 UNIT TABLET PO SCH (08:57)
[2018-01-01] MEDS: Sennosides 8.6 MG TABLET PO SCH ×2 (08:57→19:42)
[2018-01-01] MEDS: Magnesium Oxide 400 MG TABLET PO SCH ×2 (10:14→19:41)
[2018-01-01] MEDS: Doxycycline 100 MG CAPSULE PO SCH ×2 (10:14→19:42)
--- NOTE | 2018-01-01 11:48 | Internal Med Progress Note ---
Date of Encounter: 01/01/18 Time of Encounter: 11:36 - Assessment and plan (1) HTN (hypertension) Current Visit: Yes Status: Chronic Assessment and plan: Controlled. Continue current medication. Monitor blood pressure. Qualifiers: Hypertension type: essential hypertension Qualified Code(s): I10 - Essential (primary) hypertension (2) Abscess of left upper extremity Current Visit: Yes Status: Acute Assessment and plan: Improving. Follow up with infectious disease as scheduled. Continue doxycycline. (3) Acute kidney injury Current Visit: Yes Status: Acute Assessment and plan: Creatinine improving Will continue to trend labs. Follow up with nephrology as scheduled. BUn 11 CR 0.72 (4) Anemia Current Visit: Yes Status: Chronic Assessment and plan: Stable. Hemoglobin 8.5 Qualifiers: Anemia type: unspecified type Qualified Code(s): D64.9 - Anemia, unspecified (5) Hypokalemia Current Visit: Yes Status: Acute Assessment and plan: K 3.2. Continue potassium supplement. Will follow labs. - Time Spent With Patient less than 15 minutes - Subjective Interval history: Participating well with therapy. Patient is going on for appointment today to see wrist liner. Patient transfers with contact guard assist with Walker. Bowels moving as normal. Denies fever, chills, nausea vomiting or diarrhea. Patient has small abrasion to right buttock area. Left wrist incision healing. - Constitutional Vitals: Temp Pulse Resp BP Pulse Ox 98.4 F 86 16 166/84 94 01/01/18 07:28 01/01/18 07:28 01/01/18 07:28 01/01/18 07:28 01/01/18 07:28 General appearance: Present: cooperative, A&O X 3, pleasant, no acute distress, answers questions appropriately - Head Head exam: Present: atraumatic, normocephalic - Eye Eye exam: Present: PERRL, conjuntiva pink, sclera anicteric Pupils: Present: PERRL - Neck Neck exam general surgery: Present: supple, trachea midline. Absent: lymphadenopathy - Respiratory Respiratory exam: Present: CTAB. Absent: accessory muscle use, rales, rhonchi, wheezes - Cardiovascular Cardiovascular exam: Present: RRR, +S1, +S2. Absent: diastolic murmur, gallop, rubs, systolic murmur - GI/Abdominal GI/Abdominal exam: Present: normal bowel sounds, soft, no peritoneal signs. Absent: distended, tenderness - Extremities Exam Extremities exam: Present: warm, radial pulses palpable and symmetrical. Absent: calf tenderness, cyanotic, pedal edema Additional comments: Left hand incision closed to wrist area. Slight non-pitting edema to fingers. - Neurological Exam Neurological exam: Present: CN II-XII intact, oriented X3, no focal deficits. Absent: pronater drift, facial droop, speech deficit - Skin Skin exam: Present: dry, intact Additional comments: Small abrasion to left buttock area. Internal Medicine: Result - Labs CBC & Chem 7: 01/01/18 04:45 01/01/18 04:45 Labs: Short CBC 01/01/18 Range/Units 04:45 WBC 5.0 (4.3-11.1) K/mcL Hgb 8.5 L (11.5-15.4) g/dL Hct 27.1 L (35.3-44.9) % Plt Count 189 (140-400) K/mcL [facility] 01/01/18 04:45 Sodium 141 Potassium 3.2 L Chloride 106 Carbon Dioxide 27 BUN 11 Creatinine 0.72 Glucose 98 Calcium 8.4 L Consult Discharge Plan - Plan Referrals: Conchis Escobar CNP [Primary Care Provider] -
[2018-01-01] MEDS: Latanoprost 2.5 ML BOTTLE BOTH EYES SCH (19:44)
[2018-01-01] MEDS: Acetaminophen 325 MG TABLET PO PRN (19:48)
[2018-01-01] MEDS ORDERED: cloNIDine HCl 0.1 MG TABLET PO PRN (20:46)
[2018-01-02 07:39] LABS: BUN/Creatinine Ratio 13 (6-26); Blood Urea Nitrogen 10 mg/dL (8-23); Calcium 8.7 mg/dL (8.6-10.3); Carbon Dioxide 28 mEq/L (23-29); Chloride 108 mEq/L (98-107); Glucose 95 mg/dL (70-105); Osmolality,Calculated 293 (280-300); Potassium 3.6 mEq/L (3.5-5.1); Sodium 142 mEq/L (136-145); eGFR For Non-African Americans > 60 (> 60)
[2018-01-02] MEDS: Doxycycline 100 MG CAPSULE PO SCH ×2 (07:54→21:55)
[2018-01-02] MEDS: Cholecalciferol (D-3) 1,000 UNIT TABLET PO SCH (07:54)
[2018-01-02] MEDS: Magnesium Oxide 400 MG TABLET PO SCH ×2 (07:54→21:55)
[2018-01-02] MEDS: Nystatin Cream 15 GM TUBE TP SCH ×2 (07:54→21:57)
[2018-01-02] MEDS: Lactobacillus 1 EACH CAP.SPRINK PO SCH (07:55)
[2018-01-02] MEDS: Nystatin SUSP 5 ML UD.LIQ PO SCH ×4 (07:55→21:57)
[2018-01-02] MEDS: Famotidine 20 MG TABLET PO SCH (07:55)
[2018-01-02] MEDS: amLODIPine 5 MG TABLET PO SCH (07:56)
[2018-01-02] MEDS: Sennosides 8.6 MG TABLET PO SCH ×2 (07:56→21:56)
[2018-01-02] MEDS: Sucralfate 1 GM TABLET PO SCH ×2 (07:58→16:14)
--- NOTE | 2018-01-02 08:43 | Internal Med Progress Note ---
Date of Encounter: 01/02/18 Time of Encounter: 08:38 - Assessment and plan (1) HTN (hypertension) Current Visit: Yes Status: Chronic Assessment and plan: Controlled. Continue current medication. Monitor blood pressure. Qualifiers: Hypertension type: essential hypertension Qualified Code(s): I10 - Essential (primary) hypertension (2) Abscess of left upper extremity Current Visit: Yes Status: Acute Assessment and plan: Improving. Follow up with infectious disease as scheduled. Continue doxycycline. (3) Acute kidney injury Current Visit: Yes Status: Resolved Assessment and plan: Creatinine normal. Will continue to trend labs. Follow up with nephrology as scheduled. (4) Anemia Current Visit: Yes Status: Chronic Assessment and plan: Stable. Hemoglobin 8.5 Qualifiers: Anemia type: unspecified type Qualified Code(s): D64.9 - Anemia, unspecified (5) Hypokalemia Current Visit: Yes Status: Acute Assessment and plan: K 3.6. Continue potassium supplement. Will follow labs. - Time Spent With Patient less than 15 minutes - Subjective Interval history: Participating well with therapy. Patient transfers with contact guard assist with Walker. Bowels moving as normal, last was yesterday. Denies fever, chills, nausea vomiting or diarrhea. Left wrist incision closed and healing. maintaining appetite and hydration. - Constitutional Vitals: Temp Pulse Resp BP Pulse Ox 98.6 F 82 16 149/87 94 01/02/18 07:39 01/02/18 07:39 01/02/18 07:39 01/02/18 07:39 01/02/18 07:39 General appearance: Present: cooperative, A&O X 3, pleasant, no acute distress, answers questions appropriately - Head Head exam: Present: atraumatic, normocephalic - Eye Eye exam: Present: PERRL, conjuntiva pink, sclera anicteric Pupils: Present: PERRL - Neck Neck exam general surgery: Present: supple, trachea midline. Absent: lymphadenopathy - Respiratory Respiratory exam: Present: CTAB. Absent: accessory muscle use, rales, rhonchi, wheezes - Cardiovascular Cardiovascular exam: Present: RRR, +S1, +S2. Absent: diastolic murmur, gallop, rubs, systolic murmur - GI/Abdominal GI/Abdominal exam: Present: normal bowel sounds, soft, no peritoneal signs. Absent: distended, tenderness - Extremities Exam Extremities exam: Present: warm, radial pulses palpable and symmetrical. Abs ent: calf tenderness, cyanotic, pedal edema - Incison Comments: left wrist incision closed. no drainage. - Neurological Exam Neurological exam: Present: CN II-XII intact, oriented X3, no focal deficits. Absent: pronater drift, facial droop, speech deficit - Skin Skin exam: Present: dry, intact Internal Medicine: Result - Labs CBC & Chem 7: 01/01/18 04:45 01/02/18 06:51 Labs: BMP 01/02/18 06:51 Sodium 142 Potassium 3.6 Chloride 108 H Carbon Dioxide 28 BUN 10 Creatinine 0.76 Glucose 95 Calcium 8.7 Consult Discharge Plan - Plan Referrals: Conchis Escobar AIRPORT OPERATIONS SUPERVISOR [Primary Care Provider] -
[2018-01-02] MEDS: Acetaminophen 325 MG TABLET PO PRN (21:55)
[2018-01-02] MEDS: Latanoprost 2.5 ML BOTTLE BOTH EYES SCH (21:58)
[2018-01-03 06:38] LABS: BUN/Creatinine Ratio 16 (6-26); Blood Urea Nitrogen 11 mg/dL (8-23); Calcium 8.7 mg/dL (8.6-10.3); Carbon Dioxide 27 mEq/L (23-29); Chloride 109 mEq/L (98-107); Glucose 95 mg/dL (70-105); Osmolality,Calculated 293 (280-300); Potassium 3.3 mEq/L (3.5-5.1); Sodium 142 mEq/L (136-145); eGFR For Non-African Americans > 60 (> 60)
[2018-01-03 07:32] VITALS: BP 130/78
[2018-01-03] MEDS: Nystatin SUSP 5 ML UD.LIQ PO SCH (07:53)
[2018-01-03] MEDS: Cholecalciferol (D-3) 1,000 UNIT TABLET PO SCH (07:54)
[2018-01-03] MEDS: amLODIPine 5 MG TABLET PO SCH (07:54)
[2018-01-03] MEDS: Sennosides 8.6 MG TABLET PO SCH (07:54)
[2018-01-03] MEDS: Magnesium Oxide 400 MG TABLET PO SCH (07:54)
[2018-01-03] MEDS: Doxycycline 100 MG CAPSULE PO SCH (07:54)
[2018-01-03] MEDS: Famotidine 20 MG TABLET PO SCH (07:54)
[2018-01-03] MEDS: Sucralfate 1 GM TABLET PO SCH (07:54)
[2018-01-03] MEDS: Lactobacillus 1 EACH CAP.SPRINK PO SCH (07:54)
[2018-01-03] MEDS: Nystatin Cream 15 GM TUBE TP SCH (07:55)
--- NOTE | 2018-01-03 10:53 | Physician Discharge Referral ---
Home Health/Hosp Referral Info Transfer to: Home Health Provider in Charge Post Discharge: PCP - Diagnosis (1) HTN (hypertension) Priority: Secondary Status: Chronic (2) Abscess of left upper extremity Priority: Primary Status: Acute (3) Acute kidney injury Priority: Secondary Status: Resolved (4) Anemia Priority: Secondary Status: Chronic (5) Hypokalemia Priority: Secondary Status: Acute - Respiratory Orders Smoking Cessation: Smoking cessation has been advised. For more information, call the [place] Tobacco Quit Line at 1-056-IGZB-NOW. - Diet/Nutrition Diet/Nutrition Orders: Regular - Activity Activity Orders: Ambulate, Walker - Services Needed Following services are medically necessary services: Nursing, Physical Therapy - Transfer Medications Home Medications: Anastrozole [Arimidex] 1 mg PO DAILY 07/02/15 [History] Sertraline [Zoloft] 150 mg PO DAILY 07/02/15 [History] Simvastatin [Zocor] 20 mg PO HS 07/02/15 [History] amLODIPine [Norvasc] 5 mg PO DAILY 07/02/15 [History] Buspirone HCl [Buspar] 7.5 mg PO BID 11/12/17 [History] Calcium Carbonate/Vitamin D3 [Calcium 600 + Vit D Tablet] 1 each PO BID 11/12/17 [History] Cholecalciferol (Vitamin D3) [Vitamin D3] 1,000 unit PO DAILY 11/12/17 [History] Donepezil HCl [Aricept] 5 mg PO HS 11/12/17 [History] Alendronate Sodium [Fosamax] 70 mg PO QWEEK 11/20/17 [History] Latanoprost [Xalatan] 1 drop BOTH EYES HS 11/20/17 [History] Docusate [Colace] 100 mg PO DAILY capsule 12/15/17 [Rx] Lactobacillus [Culturelle] 2 each PO DAILY cap.sprink 12/15/17 [Rx] Levofloxacin [Levaquin] 500 mg PO ONCE #1 tablet 12/15/17 [Rx] Ondansetron ODT [Zofran ODT] 4 mg SL Q6HR PRN #10 tab.rapdis 12/15/17 [Rx] Allergies/Adverse Reactions: Allergy/AdvReac Type Severity Reaction Status Date / Time No Known Allergies Allergy Verified 11/12/17 12:09 Certification: Further, I certify that my clinical findings support that this patient is homebound (i.e. absences from home require considerable and taxing effort and are for medical reasons or hindu services or infrequently or short duration when for other reasons) because: Homebound Reason: Patient requires assistance of a person or device to safely leave home, Post-surgery restriction and or conditions limit ability to leave home Attestation: My signature below is to certify that this patient is under my care and that I, or nurse practitioner, or a physician's assistant portfolio manager working with me, has a [id number] encounter with this patient.
--- NOTE | 2018-01-03 11:02 | Discharge Summary ---
Addendum entered and electronically signed by Pawan Zhang DO 01/04/18 14:38: I have personally performed a face to face evaluation on this patient. I have reviewed and agree with the care plan. History and Exam by me shows: I have personally performed a face to face evaluation on this patient. I have reviewed and agree with the care plan. History and Exam by me shows: Original Note: Orders not resulted at time of discharge: Pending orders 01/04/18 04:00 BMP [Basic Metabolic Panel] AM 0400 01/05/18 04:00 BMP [Basic Metabolic Panel] AM 0400 Date of Encounter: 01/03/18 Time of Encounter: 10:54 - Discharge Diagnosis (1) HTN (hypertension) Priority: Secondary Status: Chronic Comments: Controlled with current medication. Monitor blood pressure. Follow up with PCP. Qualifiers: Hypertension type: essential hypertension Qualified Code(s): I10 - Essential (primary) hypertension (2) Abscess of left upper extremity Priority: Primary Status: Acute Comments: Healing. Continue doxycycline. Follow up with surgeon as scheduled. (3) Acute kidney injury Priority: Secondary Status: Resolved Comments: BUN and creatinine normal. Follow up with field case manager as scheduled. (4) Anemia Priority: Secondary Status: Chronic Comments: STable. Follow up with PCP. Qualifiers: Anemia type: unspecified type Qualified Code(s): D64.9 - Anemia, unspecified (5) Hypokalemia Priority: Secondary Status: Acute Comments: Potassium 3.3 today. Patient refusing to take potassium supplements. Encouraged and educated on the importance. Follow up with PCP. Hospital course: Ms. Shah is a 87 year old female discharging to home with . Ambulating household distances with Walker. Left wrist\hand incision healing. Has 2 doses of doxycycline left. Follow up with surgeon as scheduled. Follow up with PCP within one week. Denies fever, chills, nausea vomiting or diarrhea. Last bowel movement was yesterday. Denies any questions at this time. Discharge discussed with: patient, family, nurse, social work - Time Spent with Patient Total time spent providing and/or coordinating discharge services: Less than 30 minutes - Discharge Medications Home Medications: Anastrozole [Arimidex] 1 mg PO DAILY 07/02/15 [History] Sertraline [Zoloft] 150 mg PO DAILY 07/02/15 [History] Simvastatin [Zocor] 20 mg PO HS 07/02/15 [History] amLODIPine [Norvasc] 5 mg PO DAILY 07/02/15 [History] Buspirone HCl [Buspar] 7.5 mg PO BID 11/12/17 [History] Calcium Carbonate/Vitamin D3 [Calcium 600 + Vit D Tablet] 1 each PO BID 11/12/17 [History] Cholecalciferol (Vitamin D3) [Vitamin D3] 1,000 unit PO DAILY 11/12/17 [History] Donepezil HCl [Aricept] 5 mg PO HS 11/12/17 [History] Alendronate Sodium [Fosamax] 70 mg PO QWEEK 11/20/17 [History] Latanoprost [Xalatan] 1 drop BOTH EYES HS 11/20/17 [History] Docusate [Colace] 100 mg PO DAILY capsule 12/15/17 [Rx] Lactobacillus [Culturelle] 2 each PO DAILY cap.sprink 12/15/17 [Rx] Levofloxacin [Levaquin] 500 mg PO ONCE #1 tablet 12/15/17 [Rx] Ondansetron ODT [Zofran ODT] 4 mg SL Q6HR PRN #10 tab.rapdis 12/15/17 [Rx] Allergies/Adverse Reactions: Allergy/AdvReac Type Severity Reaction Status Date / Time No Known Allergies Allergy Verified 11/12/17 12:09 Date of admission: 12/15/17 18:56 Primary care physician: LEA Schmitt Consults: 12/15/17 20:30 Consult to Occupational Therapy [CONS] Routine Comment: evaluate and treat Reason for Consult: falls Does patient have active BEDREST order?: No Is patient medically & hemodynamically stable?: Yes Patient assessed for mobility or mobilized this visit?: No Consult to Physical Therapy [CONS] Routine Comment: evaluate and treat Reason for Consult: falls Does patient have active BEDREST order?: No Is patient medically & hemodynamically stable?: Yes Patient assessed for mobility or mobilized this visit?: No Consult to Recreational Therapy [CONS] Routine Comment: Consult to Health Teacher [CONS] Routine Reason for SW Consult: discharge planning 12/18/17 15:44 Consult to Psychology [CONS] Routine Consulting Provider: [place] Reason for Consult: Possible depression; adjustment disorder Call Completed: No Discharging clinician: Pawan Zhang Anticipated date of discharge: 01/03/18 - Constitutional Vitals: Temp Pulse Resp BP Pulse Ox 97.8 F 82 16 130/78 94 01/03/18 07:30 01/03/18 07:30 01/03/18 07:30 01/03/18 07:30 01/03/18 07:30 General appearance: Present: cooperative, A&O X 3, pleasant, no acute distress, answers questions appropriately - Head Head exam: Present: atraumatic, normocephalic - Eye Eye exam: Present: PERRL, conjuntiva pink, sclera anicteric Pupils: Present: PERRL - Neck Neck exam general surgery: Present: supple, trachea midline. Absent: lymphadenopathy - Respiratory Respiratory exam: Present: CTAB. Absent: accessory muscle use, rales, rhonchi, wheezes - Cardiovascular Cardiovascular exam: Present: RRR, +S1, +S2. Absent: diastolic murmur, gallop, rubs, systolic murmur - GI/Abdominal GI/Abdominal exam: Present: normal bowel sounds, soft, no peritoneal signs. Absent: distended, tenderness - Extremities Exam Extremities exam: Present: warm, radial pulses palpable and symmetrical. Absent: calf tenderness, cyanotic, pedal edema - Incison Comments: Left wrist\hand incision healing. No sign of infection. - Neurological Exam Neurological exam: Present: CN II-XII intact, oriented X3, no focal deficits. Absent: pronater drift, facial droop, speech deficit - Skin Skin exam: Present: dry, intact - Patient Status Disposition: Home Health Service Condition: Good Functional capacity at discharge: uses cane/walker Overall status at discharge: patient is progressing back to baseline - Discharge Instructions Follow Up With: Conchis Escobar CNP [Primary Care Provider] - - Diet and Activity Activity: as per physical therapy Diet: advance to your usual diet
== END 2018-01-03 13:45 | disposition home health service (06) | DRG 945 ==
LOC: INPGRE 18:56

== ENCOUNTER 2020-04-18 14:31 | Inpatient (IN) ==
[2020-04-18 15:11] LABS: Basophils % 0.2 %; Eosinophils # 0.1 K/mcL (0.0-0.6); Eosinophils % 0.9 %; Hematocrit 41.4 % (35.3-44.9); Hemoglobin 13.9 g/dL (11.5-15.4); Lymphocytes # 0.5 K/mcL (0.6-4.6); Lymphocytes % 9.2 %; Mean Corpuscular HGB Conc 33.6 g/dL (31.6-35.5); Mean Corpuscular Volume 92.4 fL (83.0-100.0); Mean Platelet Volume 11.8 fL (9.4-12.4); Monocytes # 0.5 K/mcL (0.0-1.3); Monocytes % 8.7 %; Neutrophils # 4.5 K/mcL (1.6-8.9); Platelet Count 126 K/mcL (140-400); Red Blood Count 4.48 M/mcL (3.82-4.97); Red Cell Distribution Width 13.2 % (11.5-14.5); White Blood Count 5.5 K/mcL (4.3-11.1)
[2020-04-18 15:18] LABS: INR 1.2; Prothrombin Time 13.9 Seconds (9.4-12.1)
[2020-04-18 15:21] LABS: Activated Partial Thrombo Time 27.6 Seconds (26.0-36.0)
[2020-04-18 15:30] LABS: Troponin I < 0.03 ng/mL (< 0.04)
[2020-04-18 15:31] LABS: Alanine Aminotransferase 8 Units/L (7-52); Albumin 3.9 g/dL (3.5-5.7); Albumin/Globulin Ratio 1.6 (1.1-2.2); Alkaline Phosphatase 67 Units/L (34-104); Aspartate Amino Transferase 11 Units/L (13-39); BUN/Creatinine Ratio 14 (6-26); Bilirubin,Total 0.6 mg/dL (0.3-1.0); Blood Urea Nitrogen 8 mg/dL (8-23); Carbon Dioxide 27 mEq/L (23-29); Chloride 103 mEq/L (98-107); Globulin 2.5 g/dL (2.4-3.5); Glucose 95 mg/dL (70-105); Magnesium 1.7 mg/dL (1.6-2.6); Osmolality,Calculated 284 (280-300); Phosphorous 2.6 mg/dL (2.7-4.5); Potassium 3.9 mEq/L (3.5-5.1); Sodium 138 mEq/L (136-145); Total Protein 6.4 g/dL (6.4-8.9); eGFR For African Americans > 60 (> 60); eGFR For Non-African Americans > 60 (> 60)
[2020-04-18 16:17] LABS: Bilirubin,Urine Negative (Negative); Blood,Urine Trace-intact (Negative); Clarity,Urine Clear (Clear); Color,Urine Yellow (Yellow); Glucose,Urine (UA) Normal (Normal); Ketones,Urine Negative (Negative); Leukocyte Esterase,Urine Negative (Negative); Nitrite,Urine Negative (Negative); PH,Urine 8.5 pH Units (5.0-8.0); Protein,Urine Negative (Neg-Trace); Urobilinogen,Urine Normal (Normal)
[2020-04-18 16:27] LABS: RBC,Urine 0-3 per hpf (0-3)
[2020-04-18 16:28] LABS: WBC,Urine 0-3 per hpf (0-3)
[2020-04-18] MEDS ORDERED: 0.9 % Sodium Chloride 1,000 ML IVC SCH (18:28)
[2020-04-18] MEDS ORDERED: *HR* HYDROcodone/Acet 7.5/325 mg TABLET PO PRN (18:28)
[2020-04-18] MEDS ORDERED: Naloxone 0.4 MG/ML INJ IVP PRN (18:28)
[2020-04-18] MEDS: Diclofenac Sodium (DR) 75 MG TABLET.DR PO SCH (20:34)
[2020-04-19 03:08] LABS: Basophils % 0.2 %; Eosinophils # 0.1 K/mcL (0.0-0.6); Eosinophils % 2.9 %; Hematocrit 36.8 % (35.3-44.9); Hemoglobin 12.3 g/dL (11.5-15.4); Immature Granulocytes % 0.2 % (0-4); Lymphocytes # 0.6 K/mcL (0.6-4.6); Lymphocytes % 13.8 %; Mean Corpuscular HGB Conc 33.4 g/dL (31.6-35.5); Mean Corpuscular Hemoglobin 30.7 pg (28.0-33.3); Mean Corpuscular Volume 91.8 fL (83.0-100.0); Mean Platelet Volume 10.8 fL (9.4-12.4); Monocytes # 0.5 K/mcL (0.0-1.3); Monocytes % 12.1 %; Neutrophils # 2.9 K/mcL (1.6-8.9); Platelet Count 128 K/mcL (140-400); Red Blood Count 4.01 M/mcL (3.82-4.97); Red Cell Distribution Width 13.2 % (11.5-14.5); Segmented Neutrophils % 70.8 %; White Blood Count 4.1 K/mcL (4.3-11.1)
[2020-04-19 03:28] LABS: BUN/Creatinine Ratio 17 (6-26); Blood Urea Nitrogen 9 mg/dL (8-23); Calcium 8.6 mg/dL (8.6-10.3); Carbon Dioxide 27 mEq/L (23-29); Chloride 106 mEq/L (98-107); Glucose 91 mg/dL (70-105); Magnesium 1.7 mg/dL (1.6-2.6); Osmolality,Calculated 288 (280-300); Phosphorous 3.2 mg/dL (2.7-4.5); Potassium 3.6 mEq/L (3.5-5.1); Sodium 140 mEq/L (136-145); eGFR For African Americans > 60 (> 60); eGFR For Non-African Americans > 60 (> 60)
[2020-04-19] MEDS ORDERED: Cholecalciferol (D-3) 1,000 UNIT (25MCG) TABLET PO SCH (09:00)
[2020-04-19] MEDS ORDERED: Cyanocobalamin (B-12) 1,000 MCG TABLET PO SCH (09:00)
[2020-04-19] MEDS ORDERED: amLODIPine 5 MG TABLET PO SCH (09:00)
[2020-04-19] MEDS ORDERED: Anastrozole 1 MG TABLET PO SCH (09:00)
[2020-04-19] MEDS ORDERED: lisinopriL 10 MG TABLET PO SCH (09:00)
[2020-04-19] MEDS: Diclofenac Sodium (DR) 75 MG TABLET.DR PO SCH (10:16)
[2020-04-19] MEDS: Latanoprost 2.5 ML BOTTLE BOTH EYES SCH ×2 (10:18→11:58)
[2020-04-19 12:17] VITALS: BP 125/61
[2020-04-19] MEDS ORDERED: Perflutren Lipid Microsphere 1.3 ML in 0.9 % Sodium Chloride 8.7 ML IVP PRN (12:21)
[2020-04-19] MEDS ORDERED: *HR* Enoxaparin 30 MG/0.3 ML SYRINGE SQ SCH (12:55)
[2020-04-19] MEDS ORDERED: Latanoprost 2.5 ML BOTTLE BOTH EYES SCH (21:00)
[2020-04-20] MEDS ORDERED: *HR* Enoxaparin 30 MG/0.3 ML SYRINGE SQ SCH (06:00)
[2020-04-20] MEDS ORDERED: ALENDRONATE SODIUM 70 MG PO SCH (20:04)
== END 2020-04-19 16:13 | disposition short-term general hospital (02) | DRG 312 ==
LOC: EMEROOGRE 14:31 → INPGRE 14:31
PROVIDERS: ADMIT Family Medicine; ATTEND Family Medicine

== ENCOUNTER 2020-08-09 21:46 | Inpatient (IN) ==
[2020-08-09 23:57] LABS: VBG HCO3 26 mEq/L (21-27); VBG PCO2 40 mmHg (41-51); VBG PH 7.42 pH Units (7.32-7.42); VBG PO2 21 mmHg (25-50)
[2020-08-10 00:01] LABS: Alanine Aminotransferase 11 Units/L (7-52); Albumin 3.3 g/dL (3.5-5.7); Alkaline Phosphatase 67 Units/L (34-104); Aspartate Amino Transferase 12 Units/L (13-39); BUN/Creatinine Ratio 16 (6-26); Bilirubin,Total 0.9 mg/dL (0.3-1.0); Blood Urea Nitrogen 9 mg/dL (8-23); Calcium 8.9 mg/dL (8.6-10.3); Carbon Dioxide 27 mEq/L (23-29); Chloride 98 mEq/L (98-107); Globulin 3.4 g/dL (2.4-3.5); Glucose 101 mg/dL (70-105); Magnesium 1.7 mg/dL (1.6-2.6); Osmolality,Calculated 275 (280-300); Potassium 3.9 mEq/L (3.5-5.1); Sodium 133 mEq/L (136-145); Total Protein 6.7 g/dL (6.4-8.9); Troponin I < 0.03 ng/mL (< 0.04); eGFR For African Americans > 60 (> 60); eGFR For Non-African Americans > 60 (> 60)
[2020-08-10 00:03] LABS: Basophils % 0.2 %; Hematocrit 41.5 % (35.3-44.9); Hemoglobin 13.5 g/dL (11.5-15.4); Immature Granulocytes % 0.4 % (0-4); Lymphocytes # 0.6 K/mcL (0.6-4.6); Lymphocytes % 5.7 %; Mean Corpuscular HGB Conc 32.5 g/dL (31.6-35.5); Mean Corpuscular Hemoglobin 29.6 pg (28.0-33.3); Mean Platelet Volume 11.1 fL (9.4-12.4); Monocytes # 0.6 K/mcL (0.0-1.3); Monocytes % 6.3 %; Neutrophils # 8.5 K/mcL (1.6-8.9); Platelet Count 176 K/mcL (140-400); Red Blood Count 4.56 M/mcL (3.82-4.97); Red Cell Distribution Width 14.2 % (11.5-14.5); Segmented Neutrophils % 87.4 %; White Blood Count 9.7 K/mcL (4.3-11.1)
[2020-08-10 00:21] LABS: Bilirubin,Urine Negative (Negative); Blood,Urine Moderate (Negative); Clarity,Urine Slightly Cloudy (Clear); Glucose,Urine (UA) Normal (Normal); Ketones,Urine Trace mg/dL (Negative); Leukocyte Esterase,Urine Large (Negative); Nitrite,Urine Positive (Negative); PH,Urine 7.5 pH Units (5.0-8.0); Protein,Urine 100 mg/dL (Neg-Trace); Urobilinogen,Urine Normal (Normal)
[2020-08-10 00:26] LABS: Color,Urine Light Yellow (Yellow)
[2020-08-10 00:27] LABS: Amorphous Sediment,Urine Few per hpf (None-Few); Bacteria,Urine Moderate per hpf (None-Few); WBC,Urine 15-30 per hpf (0-3)
[2020-08-10] MEDS ORDERED: Acetaminophen 325 MG TABLET PO ONE (00:36)
[2020-08-10] MEDS ORDERED: Naloxone 0.4 MG/ML INJ IVP PRN (01:46)
[2020-08-10] MEDS ORDERED: Ondansetron ODT 4 MG TAB.RAPDIS SL PRN (01:46)
[2020-08-10] MEDS ORDERED: Acetaminophen 325 MG TABLET PO PRN (01:46)
[2020-08-10] MEDS ORDERED: *HR* HYDROcodone/Acet 7.5/325 mg TABLET PO PRN (01:46)
[2020-08-10] MEDS: 0.9 % Sodium Chloride w KCl 20 MEQ/1,000 ML MLS IVC SCH ×2 (03:02→16:40)
[2020-08-10] MEDS ORDERED: *HR* Enoxaparin 30 MG/0.3 ML SYRINGE SQ SCH (06:00)
[2020-08-10] MEDS: carvediloL 6.25 MG TABLET PO SCH ×2 (09:01→16:42)
[2020-08-10] MEDS: lisinopriL 10 MG TABLET PO SCH (09:01)
[2020-08-10] MEDS: cefTRIAXone 1,000 MG in 0.9 % Sodium Chloride Mini Bag 100 ML IVPB SCH (09:01)
[2020-08-10] MEDS: Anastrozole 1 MG TABLET PO SCH (09:01)
[2020-08-10] MEDS: Furosemide 20 MG TABLET PO SCH (09:01)
[2020-08-10] MEDS: Diclofenac Sodium (DR) 75 MG TABLET.DR PO SCH ×2 (09:02→21:25)
[2020-08-10] MEDS ORDERED: tiZANidine 4 MG TABLET PO PRN (13:33)
[2020-08-10] MEDS ORDERED: *HR* HYDROcodone/Acet 5/325 mg TABLET PO PRN (13:33)
[2020-08-10] MEDS: *HR* HYDROcodone/Acet 5/325 mg TABLET PO PRN (16:41)
[2020-08-10] MEDS: Latanoprost 2.5 ML BOTTLE BOTH EYES SCH (21:25)
[2020-08-11] MEDS ORDERED: *HR* Enoxaparin 30 MG/0.3 ML SYRINGE SQ SCH (06:00)
[2020-08-11] MEDS: cefTRIAXone 1,000 MG in 0.9 % Sodium Chloride Mini Bag 100 ML IVPB SCH (10:43)
[2020-08-11] MEDS: carvediloL 6.25 MG TABLET PO SCH ×2 (11:41→17:51)
[2020-08-11] MEDS: lisinopriL 10 MG TABLET PO SCH (11:41)
[2020-08-11] MEDS: Furosemide 20 MG TABLET PO SCH (11:41)
[2020-08-11] MEDS: Diclofenac Sodium (DR) 75 MG TABLET.DR PO SCH ×2 (11:41→20:10)
[2020-08-11] MEDS: Anastrozole 1 MG TABLET PO SCH (11:41)
[2020-08-11] MEDS ORDERED: 0.9 % Sodium Chloride 500 ML ONE (19:03)
[2020-08-11] MEDS ORDERED: 0.9 % Sodium Chloride 500 ML IVC ONE (19:06)
[2020-08-11] MEDS: 0.9 % Sodium Chloride 1,000 ML IVC SCH (20:08)
[2020-08-11] MEDS: Cefdinir 300 MG CAPSULE PO SCH (20:10)
[2020-08-11] MEDS: Latanoprost 2.5 ML BOTTLE BOTH EYES SCH (20:11)
[2020-08-12] MEDS: *HR* Enoxaparin 40 MG/0.4 ML SYRINGE SQ SCH (04:42)
[2020-08-12] MEDS: *HR* HYDROcodone/Acet 5/325 mg TABLET PO PRN ×2 (04:42→18:18)
[2020-08-12] MEDS: lisinopriL 10 MG TABLET PO SCH (08:44)
[2020-08-12] MEDS: carvediloL 6.25 MG TABLET PO SCH ×2 (08:44→17:15)
[2020-08-12] MEDS: 0.9 % Sodium Chloride 1,000 ML IVC SCH ×2 (08:57→17:35)
[2020-08-12] MEDS: Cefdinir 300 MG CAPSULE PO SCH ×2 (08:57→21:37)
[2020-08-12] MEDS: Anastrozole 1 MG TABLET PO SCH (08:58)
[2020-08-12] MEDS: Diclofenac Sodium (DR) 75 MG TABLET.DR PO SCH ×2 (08:58→21:37)
[2020-08-12] MEDS: Latanoprost 2.5 ML BOTTLE BOTH EYES SCH (21:37)
[2020-08-13] MEDS: *HR* Enoxaparin 40 MG/0.4 ML SYRINGE SQ SCH (04:29)
[2020-08-13] MEDS: 0.9 % Sodium Chloride 1,000 ML IVC SCH ×2 (05:00→12:02)
[2020-08-13 06:00] LABS: Hematocrit 35.3 % (35.3-44.9); Hemoglobin 10.9 g/dL (11.5-15.4); Mean Corpuscular HGB Conc 30.9 g/dL (31.6-35.5); Mean Corpuscular Hemoglobin 29.1 pg (28.0-33.3); Mean Corpuscular Volume 94.4 fL (83.0-100.0); Mean Platelet Volume 11.2 fL (9.4-12.4); Platelet Count 152 K/mcL (140-400); Red Blood Count 3.74 M/mcL (3.82-4.97); Red Cell Distribution Width 14.2 % (11.5-14.5); White Blood Count 6.5 K/mcL (4.3-11.1)
[2020-08-13 06:16] LABS: Alanine Aminotransferase 14 Units/L (7-52); Albumin 2.2 g/dL (3.5-5.7); Albumin/Globulin Ratio 0.8 (1.1-2.2); Alkaline Phosphatase 60 Units/L (34-104); Aspartate Amino Transferase 23 Units/L (13-39); BUN/Creatinine Ratio 34 (6-26); Bilirubin,Total 0.2 mg/dL (0.3-1.0); Blood Urea Nitrogen 23 mg/dL (8-23); Calcium 7.8 mg/dL (8.6-10.3); Carbon Dioxide 26 mEq/L (23-29); Chloride 107 mEq/L (98-107); Globulin 2.7 g/dL (2.4-3.5); Glucose 136 mg/dL (70-105); Magnesium 1.7 mg/dL (1.6-2.6); Osmolality,Calculated 288 (280-300); Sodium 136 mEq/L (136-145); Total Protein 4.9 g/dL (6.4-8.9); eGFR For African Americans > 60 (> 60); eGFR For Non-African Americans > 60 (> 60)
[2020-08-13] MEDS: carvediloL 6.25 MG TABLET PO SCH (09:09)
[2020-08-13] MEDS: Cefdinir 300 MG CAPSULE PO SCH (09:09)
[2020-08-13] MEDS: lisinopriL 10 MG TABLET PO SCH (09:09)
[2020-08-13] MEDS: Anastrozole 1 MG TABLET PO SCH (09:10)
[2020-08-13] MEDS: Diclofenac Sodium (DR) 75 MG TABLET.DR PO SCH (09:10)
[2020-08-13 09:15] LABS: Estimated Average Glucose 123 mg/dl; Hemoglobin A1C 5.9 %
[2020-08-13 12:52] VITALS: BP 143/78
[2020-08-16] MEDS ORDERED: ALENDRONATE SODIUM 70 MG PO SCH (01:44)
== END 2020-08-13 14:27 | disposition other institution (70) | DRG 690 ==
LOC: EMEROOGRE 21:46 → INPGRE 08-10 01:50
PROVIDERS: ADMIT Student in an Organized Health Care Education/Training Program; ATTEND Family Medicine

== ENCOUNTER 2020-08-12 20:05 | Inpatient (IN) ==
[2020-08-13] MEDS: carvediloL 6.25 MG TABLET PO SCH (16:38)
[2020-08-13] MEDS: Cefdinir 300 MG CAPSULE PO SCH (20:11)
[2020-08-13] MEDS: Latanoprost 2.5 ML BOTTLE BOTH EYES SCH (20:11)
[2020-08-14 05:16] LABS: Basophils % 0.2 %; Eosinophils # 0.2 K/mcL (0.0-0.6); Eosinophils % 2.9 %; Hematocrit 33.7 % (35.3-44.9); Hemoglobin 10.6 g/dL (11.5-15.4); Immature Granulocytes % 0.4 % (0-4); Lymphocytes # 0.3 K/mcL (0.6-4.6); Lymphocytes % 6.2 %; Mean Corpuscular HGB Conc 31.5 g/dL (31.6-35.5); Mean Corpuscular Hemoglobin 29.1 pg (28.0-33.3); Mean Corpuscular Volume 92.6 fL (83.0-100.0); Mean Platelet Volume 10.9 fL (9.4-12.4); Monocytes # 0.3 K/mcL (0.0-1.3); Monocytes % 6.2 %; Neutrophils # 4.6 K/mcL (1.6-8.9); Platelet Count 164 K/mcL (140-400); Red Blood Count 3.64 M/mcL (3.82-4.97); Red Cell Distribution Width 14.1 % (11.5-14.5); Segmented Neutrophils % 84.1 %; White Blood Count 5.5 K/mcL (4.3-11.1)
[2020-08-14 05:31] LABS: BUN/Creatinine Ratio 39 (6-26); Blood Urea Nitrogen 18 mg/dL (8-23); Calcium 8.5 mg/dL (8.6-10.3); Carbon Dioxide 27 mEq/L (23-29); Chloride 107 mEq/L (98-107); Glucose 115 mg/dL (70-105); Osmolality,Calculated 291 (280-300); Potassium 4.2 mEq/L (3.5-5.1); Sodium 139 mEq/L (136-145); eGFR For African Americans > 60 (> 60); eGFR For Non-African Americans > 60 (> 60)
[2020-08-14] MEDS: *HR* Enoxaparin 40 MG/0.4 ML SYRINGE SQ SCH (05:58)
[2020-08-14] MEDS: lisinopriL 10 MG TABLET PO SCH (08:59)
[2020-08-14] MEDS: Cefdinir 300 MG CAPSULE PO SCH ×2 (08:59→23:33)
[2020-08-14] MEDS: Anastrozole 1 MG TABLET PO SCH (09:00)
[2020-08-14] MEDS: carvediloL 6.25 MG TABLET PO SCH ×2 (09:00→16:45)
[2020-08-14] MEDS: Latanoprost 2.5 ML BOTTLE BOTH EYES SCH (23:34)
[2020-08-15] MEDS: lisinopriL 10 MG TABLET PO SCH (10:21)
[2020-08-15] MEDS: Anastrozole 1 MG TABLET PO SCH (10:22)
[2020-08-15] MEDS: carvediloL 6.25 MG TABLET PO SCH ×2 (10:23→16:56)
[2020-08-15] MEDS: Cefdinir 300 MG CAPSULE PO SCH ×2 (10:23→20:57)
[2020-08-15] MEDS: *HR* Enoxaparin 40 MG/0.4 ML SYRINGE SQ SCH (10:30)
[2020-08-15] MEDS: Latanoprost 2.5 ML BOTTLE BOTH EYES SCH (21:00)
[2020-08-16] MEDS: *HR* Enoxaparin 40 MG/0.4 ML SYRINGE SQ SCH (05:23)
[2020-08-16] MEDS: *HR* HYDROcodone/Acet 7.5/325 mg TABLET PO PRN (07:47)
[2020-08-16] MEDS: Anastrozole 1 MG TABLET PO SCH (07:48)
[2020-08-16] MEDS: carvediloL 6.25 MG TABLET PO SCH ×2 (07:48→16:15)
[2020-08-16] MEDS: lisinopriL 10 MG TABLET PO SCH (07:48)
[2020-08-16] MEDS ORDERED: Cefdinir 300 MG CAPSULE PO ONE (09:00)
[2020-08-16] MEDS ORDERED: NON-FORMULARY MEDICATION 1 EACH EACH (Alendronate Sodium [Fosamax] 70 MG Tablet) PO SCH (12:17)
[2020-08-16] MEDS: Latanoprost 2.5 ML BOTTLE BOTH EYES SCH (20:54)
[2020-08-17] MEDS: *HR* HYDROcodone/Acet 7.5/325 mg TABLET PO PRN ×2 (06:03→23:51)
[2020-08-17] MEDS: *HR* Enoxaparin 40 MG/0.4 ML SYRINGE SQ SCH (06:04)
[2020-08-17] MEDS: lisinopriL 10 MG TABLET PO SCH (08:53)
[2020-08-17] MEDS: Anastrozole 1 MG TABLET PO SCH (08:53)
[2020-08-17] MEDS: carvediloL 6.25 MG TABLET PO SCH ×2 (08:53→17:48)
[2020-08-17] MEDS: Latanoprost 2.5 ML BOTTLE BOTH EYES SCH (23:51)
[2020-08-18] MEDS: *HR* Enoxaparin 40 MG/0.4 ML SYRINGE SQ SCH (04:15)
[2020-08-18] MEDS: carvediloL 6.25 MG TABLET PO SCH ×2 (09:25→17:51)
[2020-08-18] MEDS: lisinopriL 10 MG TABLET PO SCH (09:26)
[2020-08-18] MEDS: Anastrozole 1 MG TABLET PO SCH (09:26)
[2020-08-18] MEDS: Latanoprost 2.5 ML BOTTLE BOTH EYES SCH (19:54)
[2020-08-19] MEDS: *HR* Enoxaparin 40 MG/0.4 ML SYRINGE SQ SCH (03:53)
[2020-08-19] MEDS: carvediloL 6.25 MG TABLET PO SCH ×2 (10:57→18:48)
[2020-08-19] MEDS: lisinopriL 10 MG TABLET PO SCH (10:58)
[2020-08-19] MEDS: *HR* HYDROcodone/Acet 7.5/325 mg TABLET PO PRN ×2 (10:58→20:38)
[2020-08-19] MEDS: Anastrozole 1 MG TABLET PO SCH (10:58)
[2020-08-19] MEDS ORDERED: *HR* HYDROcodone/Acet 5/325 mg TABLET PO PRN (15:48)
[2020-08-19] MEDS: Latanoprost 2.5 ML BOTTLE BOTH EYES SCH (20:41)
[2020-08-20] MEDS: *HR* Enoxaparin 40 MG/0.4 ML SYRINGE SQ SCH (04:41)
[2020-08-20] MEDS: carvediloL 6.25 MG TABLET PO SCH ×2 (09:09→16:31)
[2020-08-20] MEDS: Anastrozole 1 MG TABLET PO SCH (09:10)
[2020-08-20] MEDS: lisinopriL 10 MG TABLET PO SCH (09:10)
[2020-08-20 16:08] LABS: Hematocrit 32.8 % (35.3-44.9); Hemoglobin 10.4 g/dL (11.5-15.4); Mean Corpuscular HGB Conc 31.7 g/dL (31.6-35.5); Mean Corpuscular Hemoglobin 28.2 pg (28.0-33.3); Mean Corpuscular Volume 88.9 fL (83.0-100.0); Mean Platelet Volume 10.6 fL (9.4-12.4); Platelet Count 233 K/mcL (140-400); Red Blood Count 3.69 M/mcL (3.82-4.97); Red Cell Distribution Width 13.3 % (11.5-14.5); White Blood Count 6.8 K/mcL (4.3-11.1)
[2020-08-20 16:28] LABS: Alanine Aminotransferase 55 Units/L (7-52); Albumin 2.2 g/dL (3.5-5.7); Albumin/Globulin Ratio 0.8 (1.1-2.2); Alkaline Phosphatase 68 Units/L (34-104); Aspartate Amino Transferase 45 Units/L (13-39); BUN/Creatinine Ratio 50 (6-26); Bilirubin,Total 0.4 mg/dL (0.3-1.0); Blood Urea Nitrogen 20 mg/dL (8-23); Calcium 8.7 mg/dL (8.6-10.3); Carbon Dioxide 31 mEq/L (23-29); Chloride 96 mEq/L (98-107); Globulin 2.8 g/dL (2.4-3.5); Glucose 94 mg/dL (70-105); Magnesium 1.6 mg/dL (1.6-2.6); Osmolality,Calculated 276 (280-300); Potassium 3.7 mEq/L (3.5-5.1); Sodium 132 mEq/L (136-145); eGFR For African Americans > 60 (> 60); eGFR For Non-African Americans > 60 (> 60)
[2020-08-20] MEDS: Latanoprost 2.5 ML BOTTLE BOTH EYES SCH (21:38)
[2020-08-21] MEDS: *HR* Enoxaparin 40 MG/0.4 ML SYRINGE SQ SCH (05:49)
[2020-08-21] MEDS ORDERED: Acetaminophen 325 MG TABLET PO PRN (06:56)
[2020-08-21 07:20] VITALS: BP 134/73
[2020-08-21] MEDS: Anastrozole 1 MG TABLET PO SCH (10:13)
[2020-08-21] MEDS: lisinopriL 10 MG TABLET PO SCH (10:13)
[2020-08-21] MEDS: carvediloL 6.25 MG TABLET PO SCH (10:14)
[2020-08-21] MEDS: *HR* HYDROcodone/Acet 7.5/325 mg TABLET PO PRN (13:45)
== END 2020-08-21 13:47 | DRG 945 ==
LOC: INPGRE 08-13 14:41
PROVIDERS: ADMIT Family Medicine; ATTEND Family Medicine